=== PATIENT | female | born 1970 | race Caucasian/White ===

== ENCOUNTER → 2016-03-21 | Outpatient (CLI) | payer OTHER ==
--- NOTE | 2016-03-22 08:23 | MM ---
Reason for exam: screening (asymptomatic). Last mammogram was performed 1 year and 3 months ago. History: Family history of breast cancer in maternal grandmother at age 52. Benign ultrasound-guided core biopsy of the right breast, July 04, 2002. Core biopsy of the right breast. Took hormonal contraceptives for 16 years beginning at age 27. Physical Findings: A clinical breast exam by your physician is recommended on an annual basis and results should be correlated with mammographic findings. MG Screening Mammo w CAD Bilateral CC and MLO view(s) were taken. Prior study comparison: December 24, 2014, bilateral MG screening mammo w CAD. February 21, 2014, bilateral MG screening mammo w CAD. The breast tissue is heterogeneously dense. This may lower the sensitivity of mammography. No significant changes when compared with prior studies. ASSESSMENT: Benign, BI-RAD 2 RECOMMENDATION: Routine screening mammogram of both breasts in 1 year.
== END | disposition home or self-care (01) ==
LOC: RADMAMWWP 12:58
PROVIDERS: ATTEND Family Medicine
DX: Z12.31 Encounter for screening mammogram for malignant neoplasm of breast (principal)

== ENCOUNTER → 2016-05-23 | Outpatient (CLI) | payer OTHER ==
--- NOTE | 2016-05-23 07:45 | US ---
EXAMINATION TYPE: US transvaginal DATE OF EXAM: 05/23/2016 7:36 AM COMPARISON: Previous study dated 02/26/2016 CLINICAL HISTORY: N83.20 Previous ovarian cysts. TECHNIQUE: Date of LMP: EXAM MEASUREMENTS: Uterus: 8.6 x 4.6 x 5.4 cm Endometrial Stripe: 0.6 cm Right Ovary: 2.4 x 2.9 x 2.2 cm Left Ovary: 2.0 x 2.5 x 1.3 cm 1. Uterus: Retroverted wnl 2. Endometrium: wnl 3. Right Ovary: 1.6 x 1.2 x 1.4 cm cyst with thick rind and peripheral flow 4. Left Ovary: wnl 5. Bilateral Adnexa: wnl 6. Posterior cul-de-sac: no free fluid The patient's complex 4.6 cm right adnexal cyst now measures 1.6 cm with a thick wall and peripheral blood flow. There is free fluid adjacent to the right adnexa. IMPRESSION: EVOLVING IN APPEARANCE OF THE PATIENT'S RIGHT OVARIAN CYST.
== END | disposition home or self-care (01) ==
LOC: RADUSWWP 07:03
PROVIDERS: ATTEND Obstetrics & Gynecology
DX: N83.209 Unspecified ovarian cyst, unspecified side (principal)
CPT/HCPCS: 76830

== ENCOUNTER 2018-03-03 10:58 | Emergency (ER) | payer OTHER ==
[2018-03-03 11:07] VITALS: BP 153/97; PULSE 99; RESP 18; TEMP 98.2
[2018-03-03] MEDS ORDERED: IBUPROFEN 800 MG TAB PO STA (11:29)
--- NOTE | 2018-03-03 11:42 | ED ---
URI HPI - General Chief Complaint: Upper Respiratory Infection Stated Complaint: dizziness Time Seen by Provider: 03/03/18 11:18 Source: patient, RN notes reviewed Mode of arrival: ambulatory Limitations: no limitations - History of Present Illness Initial Comments: This a 47-year-old female who states she's had approximately 2 weeks of not feeling well with congestion or upper respiratory tract. She has had some chills and hot flashes. She states the pain is mostly in her frontal and right- sided of her facial area. Does get worse with movements and positional changes. She has had some green nasal drainage. No overt cough. Her ears are plugged up she states. No neck chest or abdominal pain no nausea vomiting diarrhea. She does states got worse over last several days. Even turning her head makes her sinus area hurts. No exposure to any flu or other major illnesses that she is aware of. No body aches no joint pain patient states she' s tried Mucinex and Coricidin without any success. No visual disturbances reported. No other modifying factors MD Complaint: cough, nasal congestion, sinus pain - Related Data Previous Rx's Medication Instructions Recorded Amoxicillin/Potassium Clav 1 tab PO Q12HR #20 tab 03/03/18 [Augmentin 875-125 Tablet] Ibuprofen 800 mg PO Q6HR PRN #20 tablet 03/03/18 predniSONE 20 mg PO BID #10 tab 03/03/18 Allergies Allergy/AdvReac Type Severity Reaction Status Date / Time codeine Allergy Nausea & Verified 03/03/18 11:06 Vomiting Review of Systems ROS Statement: Those systems with pertinent positive or pertinent negative responses have been documented in the HPI. ROS Other: All systems not noted in ROS Statement are negative. Past Medical History Past Medical History: Diabetes Mellitus Additional Past Medical History / Comment(s): Type II Diabetes History of Any Multi-Drug Resistant Organisms: None Reported Past Surgical History: Breast Surgery Additional Past Surgical History / Comment(s): lumpectomy Past Psychological History: No Psychological Hx Reported Smoking Status: Never smoker Past Alcohol Use History: Occasional Past Drug Use History: None Reported General Exam - General Exam Comments Initial Comments: This is a well-developed well-nourished awake alert oriented 3 female Limitations: no limitations General appearance: alert, in no apparent distress Head exam: Present: atraumatic, normocephalic, normal inspection Eye exam: Present: normal appearance, PERRL, EOMI. Absent: scleral icterus, conjunctival injection, periorbital swelling ENT exam: Present: normal exam, other (Dullness to both tympanic membranes no erythema seen there is tenderness to percussion over the frontal maxillary and ethmoid sinus region. This does re-create the patient's discomfort.) Neck exam: Present: normal inspection, full ROM, other (No stridor JVD or bruits ). Absent: tenderness, meningismus, lymphadenopathy Respiratory exam: Present: normal lung sounds bilaterally. Absent: respiratory distress, wheezes, rales, rhonchi, stridor Cardiovascular Exam: Present: regular rate, normal rhythm, normal heart sounds. Absent: systolic murmur, diastolic murmur, rubs, gallop, clicks Extremities exam: Present: normal inspection, full ROM, normal capillary refill. Absent: tenderness, pedal edema, joint swelling, calf tenderness Back exam: Present: normal inspection, full ROM. Absent: tenderness Neurological exam: Present: alert, oriented X3, CN II-XII intact Psychiatric exam: Present: normal affect, normal mood Skin exam: Present: warm, dry, intact, normal color. Absent: rash Course Vital Signs 03/03/18 11:01 Temperature 98.2 F Pulse Rate 99 Respiratory 18 Rate Blood Pressure 153/97 O2 Sat by Pulse 99 Oximetry Medical Decision Making - Medical Decision Making I did send no further workup was indicated. Patient is clinically manifest evidence of sinusitis. Due to the prolonged symptoms patient be placed on antibiotics in addition to a short course of steroids. I did recommend nasal saline lavage if possible. She will also get a humidifier for her house. She will start Mucinex and along with the other medication. Disposition Clinical Impression: Sinusitis Disposition: HOME SELF-CARE Condition: Good Instructions: Rhinosinusitis (ED) Additional Instructions: Basophils saline lavage (Aranza pot) Prescriptions: Amoxicillin/Potassium Clav [Augmentin 875-125 Tablet] 1 tab PO Q12HR #20 tab Ibuprofen 800 mg PO Q6HR PRN #20 tablet PRN Reason: Pain predniSONE 20 mg PO BID #10 tab Is patient prescribed a controlled substance at d/c from ED?: No Referrals: None,Stated [Primary Care Provider] - 1-2 days
== END 2018-03-03 11:48 | disposition home or self-care (01) ==
LOC: EC 10:58
DX: J32.9 Chronic sinusitis, unspecified (principal); R05 Cough; R68.83 Chills (without fever); Z88.5 Allergy status to narcotic agent
CPT/HCPCS: 99283

== ENCOUNTER → 2020-03-02 | Outpatient (CLI) | payer OTHER ==
--- NOTE | 2020-03-04 14:41 | MM ---
Reason for exam: screening (asymptomatic). Last mammogram was performed 2 years and 3 months ago. History: Family history of breast cancer in maternal grandmother at age 52. Benign ultrasound-guided core biopsy of the right breast, July 04, 2002. Core biopsy of the right breast. Took hormonal contraceptives for 16 years beginning at age 27. Physical Findings: A clinical breast exam by your physician is recommended on an annual basis and results should be correlated with mammographic findings. MG Screening Mammo w CAD Bilateral CC and MLO view(s) were taken. Prior study comparison: December 12, 2017, bilateral [facility] screening mammo. March 21, 2016, bilateral screening mammo w CAD. There are scattered fibroglandular densities. No significant changes when compared with prior studies. ASSESSMENT: Negative, BI-RAD 1 RECOMMENDATION: Routine screening mammogram of both breasts in 1 year.
== END | disposition home or self-care (01) ==
LOC: RADMAMWWP 08:23
PROVIDERS: ATTEND Obstetrics & Gynecology
DX: Z12.31 Encounter for screening mammogram for malignant neoplasm of breast (principal)
CPT/HCPCS: 77067

== ENCOUNTER 2021-04-01 15:46 | Inpatient (IN) | payer OTHER ==
[2021-04-01] MEDS ORDERED: SODIUM CHLORIDE 0.9% 1,000 ML IV STA (16:09)
[2021-04-01] MEDS ORDERED: MORPHINE SULFATE 4 MG/ML SYRINGE IV STA (16:12)
[2021-04-01] MEDS ORDERED: ONDANSETRON 4 MG/2 ML VIAL IVP STA (16:12)
--- NOTE | 2021-04-01 16:16 | ED ---
Abdominal Pain HPI - General Chief Complaint: Abdominal Pain Stated Complaint: Pelvic Pain Time Seen by Provider: 04/01/21 16:02 Source: patient, RN notes reviewed Mode of arrival: ambulatory Limitations: no limitations - History of Present Illness Initial Comments: This is a pleasant 50-year-old diabetic female presents to emergency department complaining of 3 or 4 days of lower abdominal pain. Patient states the pain is constant but waxes and wanes in intensity. It is made worse with palpation, bumps in the car, coughing, and some movements. Located now in the right lower quadrant. Patient denies any changes in bowel movements. She has had some nausea with one episode of vomiting 2 days ago. No shortness of breath or chest pain. MD Complaint: abdominal pain - Related Data Home Medications Medication Instructions Recorded Confirmed Benazepril HCl 20 mg PO DAILY 04/01/21 04/01/21 Dulaglutide [Trulicity] 0.75 mg SQ TH 04/01/21 04/01/21 Ergocalciferol [Vitamin D2 (1250 1,250 mcg PO Q30D 04/01/21 04/01/21 Mcg = 26782 Iu)] Insulin Glargine,Hum.rec.anlog 60 unit SQ DAILY 04/01/21 04/01/21 [Lantus Solostar Pen] Pravastatin Sodium [Pravachol] 20 mg PO DAILY 04/01/21 04/01/21 sitaGLIPtin [Januvia] 100 mg PO DAILY 04/01/21 04/01/21 Allergies Allergy/AdvReac Type Severity Reaction Status Date / Time codeine Allergy Nausea & Verified 04/01/21 16:56 Vomiting Review of Systems ROS Statement: Those systems with pertinent positive or pertinent negative responses have been documented in the HPI. ROS Other: All systems not noted in ROS Statement are negative. Past Medical History Past Medical History: Diabetes Mellitus Additional Past Medical History / Comment(s): Type II Diabetes History of Any Multi-Drug Resistant Organisms: None Reported Past Surgical History: Breast Surgery Additional Past Surgical History / Comment(s): lumpectomy Past Psychological History: No Psychological Hx Reported Smoking Status: Never smoker Past Alcohol Use History: Occasional Past Drug Use History: None Reported General Exam - General Exam Comments Initial Comments: Vital signs reviewed, does not appear to be in any significant distress. Noted to be febrile. Capillary refill less than 2 seconds. Limitations: no limitations General appearance: alert, in no apparent distress Head exam: Present: atraumatic, normocephalic, normal inspection Eye exam: Present: normal appearance, PERRL, EOMI. Absent: scleral icterus, conjunctival injection, periorbital swelling ENT exam: Present: normal exam, mucous membranes moist Neck exam: Present: normal inspection. Absent: tenderness, meningismus, lymphadenopathy Respiratory exam: Present: normal lung sounds bilaterally. Absent: respiratory distress, wheezes, rales, rhonchi, stridor Cardiovascular Exam: Present: regular rate, normal rhythm, normal heart sounds. Absent: systolic murmur, diastolic murmur, rubs, gallop, clicks GI/Abdominal exam: Present: soft, tenderness, guarding, rebound, normal bowel sounds. Absent: distended, rigid External exam: Present: normal external exam, other (Chaperoned by female emergency department health record technician). Absent: erythema, swelling Speculum exam: Present: vaginal discharge, cervical discharge, other (Purulent cervical discharge noted). Absent: vaginal bleeding, foreign body, tissue, laceration By manual exam: Present: cervical motion tenderness, adnexal tenderness, uterine tenderness, other (Right adnexal tenderness). Absent: adnexal mass, uterine en largement Extremities exam: Present: normal inspection, full ROM, normal capillary refill. Absent: tenderness, pedal edema, joint swelling, calf tenderness Back exam: Present: normal inspection Neurological exam: Present: alert, oriented X3, CN II-XII intact Psychiatric exam: Present: normal affect, normal mood Skin exam: Present: warm, dry, intact, normal color. Absent: rash Course Vital Signs 04/01/21 15:48 Temperature 100.0 F H Pulse Rate 117 H Respiratory 20 Rate Blood Pressure 106/65 O2 Sat by Pulse 100 Oximetry - Reevaluation(s) Reevaluation #1: 04/01/21 18:09 Medical record is reviewed Symptoms are improved pain ortiz, pelvic examination ordered. We will order gynecological STD testing. Ceftriaxone, doxycycline, and metronidazole ordered. Patient is informed of results and questions answered Patient in no distress Medical Decision Making - Medical Decision Making Diabetic female presents with 3-4 days of abdominal pain which is worsening and now relegated to the right lower quadrant. Appendicitis is within the differential. Also diverticulitis or possible early small bowel obstruction. Perforated bowel less likely. I think this is less likely gynecological or urogenital this patient has no vaginal discharge, no hematuria, patient denies any chance of . Presentation not consistent with cardiopulmonary disease. Will perform pelvic examination. Computed tomography scan shows evidence of hyperemic fallopian tube in the right adnexa. Clinical correlation advised for possible PID with hydro-salpinx. Note that the patient does admit to some mild vaginal discharge which may be increased from physiologic. This been going on for several days. Patient sexually active but only with her significant other. Adamantly denies any chance of STD. - Lab Data Result diagrams: 04/01/21 Unknown 04/01/21 16:30 Lab Results 04/01/21 04/01/21 04/01/21 Range/Units 16:30 16:30 16:38 WBC (3.8-10.6) k/uL RBC (3.80-5.40) m/uL Hgb (11.4-16.0) gm/dL Hct (34.0-46.0) % MCV (80.0-100.0) fL MCH (25.0-35.0) pg MCHC (31.0-37.0) g/dL RDW (11.5-15.5) % Plt Count (150-450) k/uL MPV Neutrophils % % Lymphocytes % % Monocytes % % Eosinophils % % Basophils % % Neutrophils # (1.3-7.7) k/uL Lymphocytes # (1.0-4.8) k/uL Monocytes # (0-1.0) k/uL Eosinophils # (0-0.7) k/uL Basophils # (0-0.2) k/uL Sodium 132 L (137-145) mmol/L Potassium 3.9 (3.5-5.1) mmol/L Chloride 97 L (98-107) mmol/L Carbon Dioxide 26 (22-30) mmol/L Anion Gap 9 mmol/L BUN 12 (7-17) mg/dL Creatinine 0.63 (0.52-1.04) mg/dL Est GFR (CKD-EPI)AfAm >90 (>60 ml/min/1.73 sqM) Est GFR (CKD-EPI)NonAf >90 (>60 ml/min/1.73 sqM) Glucose 218 H (74-99) mg/dL Plasma Lactic Acid Bruce 1.2 (0.7-2.0) mmol/L Calcium 9.0 (8.4-10.2) mg/dL Total Bilirubin 0.8 (0.2-1.3) mg/dL AST 18 (14-36) U/L ALT 16 (4-34) U/L Alkaline Phosphatase 63 (38-126) U/L Total Protein 7.2 (6.3-8.2) g/dL Albumin 4.0 (3.5-5.0) g/dL Lipase 52 (23-300) U/L Urine Color Urine Appearance (Clear) Urine pH (5.0-8.0) Ur Specific Mcgregor (1.001-1.035) Urine Protein (Negative) Urine Glucose (UA) (Negative) Urine Ketones (Negative) Urine Blood (Negative) Urine Nitrite (Negative) Urine Bilirubin (Negative) Urine Urobilinogen (<2.0) mg/dL Ur Leukocyte Esterase (Negative) Urine RBC (0-5) /hpf Urine WBC (0-5) /hpf Ur Squamous Epith Cells (0-4) /hpf Urine HCG, Qual Not Detected (Not Detectd) 04/01/21 04/01/21 Range/Units 17:56 Unknown WBC 15.7 H (3.8-10.6) k/uL RBC 4.19 (3.80-5.40) m/uL Hgb 13.2 (11.4-16.0) gm/dL Hct 39.0 (34.0-46.0) % MCV 93.3 (80.0-100.0) fL MCH 31.6 (25.0-35.0) pg MCHC 33.9 (31.0-37.0) g/dL RDW 12.8 (11.5-15.5) % Plt Count 243 (150-450) k/uL MPV 8.7 Neutrophils % 87 % Lymphocytes % 6 % Monocytes % 4 % Eosinophils % 1 % Basophils % 0 % Neutrophils # 13.6 H (1.3-7.7) k/uL Lymphocytes # 1.0 (1.0-4.8) k/uL Monocytes # 0.7 (0-1.0) k/uL Eosinophils # 0.2 (0-0.7) k/uL Basophils # 0.0 (0-0.2) k/uL Sodium (137-145) mmol/L Potassium (3.5-5.1) mmol/L Chloride (98-107) mmol/L Carbon Dioxide (22-30) mmol/L Anion Gap mmol/L BUN (7-17) mg/dL Creatinine (0.52-1.04) mg/dL Est GFR (CKD-EPI)AfAm (>60 ml/min/1.73 sqM) Est GFR (CKD-EPI)NonAf (>60 ml/min/1.73 sqM) Glucose (74-99) mg/dL Plasma Lactic Acid Bruce (0.7-2.0) mmol/L Calcium (8.4-10.2) mg/dL Total Bilirubin (0.2-1.3) mg/dL AST (14-36) U/L ALT (4-34) U/L Alkaline Phosphatase (38-126) U/L Total Protein (6.3-8.2) g/dL Albumin (3.5-5.0) g/dL Lipase (23-300) U/L Urine Color Yellow Urine Appearance Clear (Clear) Urine pH 6.5 (5.0-8.0) Ur Specific Mcgregor >1.050 H (1.001-1.035) Urine Protein Trace H (Negative) Urine Glucose (UA) 4+ H (Negative) Urine Ketones 1+ H (Negative) Urine Blood Moderate H (Negative) Urine Nitrite Negative (Negative) Urine Bilirubin Negative (Negative) Urine Urobilinogen 2.0 (<2.0) mg/dL Ur Leukocyte Esterase Negative (Negative) Urine RBC 4 (0-5) /hpf Urine WBC 1 (0-5) /hpf Ur Squamous Epith Cells 3 (0-4) /hpf Urine HCG, Qual (Not Detectd) - Radiology Data Radiology results: report reviewed, image reviewed Critical Care Time Critical Care Time: Yes (31) Total Critical Care Time: 31 Critical Care Time: Sepsis, multiple consultations, reevaluation of the patient's condition, evaluation of diagnostic workup. Disposition Clinical Impression: Sepsis, Pelvic inflammatory disease, Vaginal discharge Referrals: Tong Slaughter MD [Primary Care Provider] - 1-2 days
[2021-04-01 16:56] LABS: ALT 16 U/L (4-34); AST 18 U/L (14-36); African American GFR (CKD) >90 (>60 ml/min/1.73 sqM); Alkaline Phosphatase 63 U/L (38-126); Anion Gap 9 mmol/L; Blood Urea Nitrogen 12 mg/dL (7-17); Carbon Dioxide 26 mmol/L (22-30); Chloride 97 mmol/L (98-107); Glucose 218 mg/dL (74-99); Lipase 52 U/L (23-300); Non-African American GFR(CKD) >90 (>60 ml/min/1.73 sqM); Potassium 3.9 mmol/L (3.5-5.1); Sodium 132 mmol/L (137-145); Total Bilirubin 0.8 mg/dL (0.2-1.3); Total Protein 7.2 g/dL (6.3-8.2)
[2021-04-01 16:56] LABS: Basophils % (A) 0 %; Eosinophils # (A) 0.2 k/uL (0-0.7); Eosinophils % (A) 1 %; HGB 13.2 gm/dL (11.4-16.0); Lymphocytes % (A) 6 %; MCH 31.6 pg (25.0-35.0); MCHC 33.9 g/dL (31.0-37.0); MCV 93.3 fL (80.0-100.0); Mean Platelet Volume 8.7; Monocytes # (A) 0.7 k/uL (0-1.0); Monocytes % (A) 4 %; Neutrophils # (A) 13.6 k/uL (1.3-7.7); Neutrophils % (A) 87 %; Platelet Count 243 k/uL (150-450); RBC 4.19 m/uL (3.80-5.40); RDW 12.8 % (11.5-15.5); WBC 15.7 k/uL (3.8-10.6)
[2021-04-01] MEDS ORDERED: LACTATED RINGERS 1,000 ML IV ONE (17:30)
--- NOTE | 2021-04-01 17:52 | CT ---
EXAMINATION TYPE: CT abdomen pelvis w con CT DLP: 921.1 mGycm, Automated exposure control for dose reduction was used. DATE OF EXAM: 04/01/2021 5:33 PM COMPARISON: None. CLINICAL INDICATION:Female, 50 years old with history of R Lower quadrant abdominal pain; Right lower quadrant pain. Nausea and fever. TECHNIQUE: Standard CT of the abdomen and pelvis following the administration of 100 cc of Isovue 3 00 IV contrast material. Coronal and sagittal reformats were performed. FINDINGS: LOWER CHEST: Unremarkable ABDOMEN LIVER: Unremarkable GALLBLADDER AND BILE DUCTS: Unremarkable. PANCREAS: Unremarkable. SPLEEN: Unremarkable. ADRENAL GLANDS: Unremarkable. KIDNEYS AND URETERS: No evidence of hydronephrosis or renal calculus. The ureters are unremarkable. PELVIS BLADDER: Unremarkable REPRODUCTIVE: There is a tubular structure in the right adnexa which is dilated and demonstrates hype remia mendieta measures 27 mm in diameter. There is fat stranding changes within the right adnexa. ABDOMEN & PELVIS STOMACH AND BOWEL: The appendix is visualized and demonstrates feces/air within the lumen. No evidenc e of bowel obstruction. PERITONEUM: No evidence of pneumoperitoneum or free fluid. VASCULATURE: No evidence of aortic aneurysm. MUSCULOSKELETAL: No acute osseous abnormalities LYMPH NODES: No gross evidence for lymphadenopathy. SOFT TISSUE/ABDOMINAL WALL: Unremarkable IMPRESSION: Tubular structure within the right adnexa which is hyperemic and dilated. This is favored to represen t the fallopian tube. Correlate for pyosalpinx/hydrosalpinx in the setting of pelvic inflammatory dis ease.
[2021-04-01] MEDS ORDERED: cefTRIAXone IN SWFI 1,000 MG/10 ML SYRINGE IVP STA (18:06)
[2021-04-01] MEDS ORDERED: metroNIDAZOLE-NS PMX 500 MG in SALINE 1 100ML.BAG IVPB STA (18:06)
[2021-04-01 18:19] LABS: Appearance,Urine Clear (Clear); Bilirubin,Urine Negative (Negative); Blood,Urine Moderate (Negative); Color,Urine Yellow; Glucose,Urine (UA) 4+ (Negative); Ketones,Urine 1+ (Negative); Leukocyte Esterase,Urine Negative (Negative); Nitrite,Urine Negative (Negative); PH, Urine 6.5 (5.0-8.0); Protein,Urine Trace (Negative); RBC,Urine 4 /hpf (0-5); Squamous Epithelial Cell,Urine 3 /hpf (0-4); WBC,Urine 1 /hpf (0-5)
[2021-04-01 18:20] LABS: Specific Gravity,Urine >1.050 (1.001-1.035)
[2021-04-01] MEDS ORDERED: DOXYCYCLINE 100 MG in SODIUM CHLORIDE 0.9% 100 ML IVPB ONE (18:30)
[2021-04-01] MEDS ORDERED: NALOXONE 0.4 MG/ML 1 ML VIAL IV PRN (19:02)
[2021-04-01] MEDS ORDERED: MELATONIN 3 MG TABLET PO PRN (19:02)
[2021-04-01] MEDS ORDERED: ONDANSETRON 4 MG/2 ML VIAL IVP PRN (19:02)
[2021-04-01] MEDS: SODIUM CHLORIDE 0.9% 1,000 ML IV SCH ×2 (20:07→23:29)
[2021-04-01 21:47] LABS: Glucose,Whole Blood 143 mg/dL (75-99)
[2021-04-01] MEDS: metroNIDAZOLE-NS PMX 500 MG in SALINE 1 100ML.BAG IVPB SCH (23:26)
[2021-04-01] MEDS: MORPHINE SULFATE 4 MG/ML SYRINGE IV PRN (23:27)
--- NOTE | 2021-04-02 00:12 | US ---
EXAMINATION TYPE: US transvaginal DATE OF EXAM: 04/01/2021 COMPARISON: CT, US CLINICAL HISTORY: Right pelvic pain. Right-sided pelvic pain. Hx ovarian cyst. . TECHNIQUE: Transvaginal (TV). Date of LMP: 03/14/2021 EXAM MEASUREMENTS: Uterus: 8.4 x 5.4 x 5.2 cm Endometrial Stripe: 0.41 cm Possible right ovarian tissue versus other, in right adnexa measures: 2.9 x 2.3 x 2.4 cm. Left Ovary: 3.5 x 2.5 x 2.8 cm 1. Uterus: Retroverted Appears heterogeneous. Anechoic area seen in cervix: 0.5 x 0.5 x 0.5 cm. 2. Endometrium: Measures 0.41 cm. 3. Right Ovary: Possible ovarian tissue measured toward end of the exam. 4. Left Ovary: Anechoic area seen: 2.6 x 2.0 x 1.9 cm. Spectral, color and waveform doppler imaging shows arterial and venous flow within the left ovary. Right ovary not definitely seen, but arterial and venous doppler flow within area in right adnexa not ed. 5. Bilateral Adnexa: Complex, elongating tubular structure with vascularity seen within the right a dnexa measuring 8.3 x 4.0 x 3.4 cm. Echoes noted within tubular structure. Possible ovarian tissue noted just adjacent to this complex area measured. Prominent blood vessels noted in left adnexa. 6. Posterior cul-de-sac: Yes, fluid seen. IMPRESSION: Simple 2 cm cyst on the left ovary. No solid adnexal mass. Tubular structure in the right adnexa coul d be hydrosalpinx. There is small amount of free fluid in the cul-de-sac. No evidence of uterine mass .
[2021-04-02 02:22] LABS: Glucose,Whole Blood 95 mg/dL (75-99)
[2021-04-02 07:13] LABS: Glucose,Whole Blood 77 mg/dL (75-99)
[2021-04-02 07:33] LABS: Glucose,Whole Blood 93 mg/dL (75-99)
[2021-04-02] MEDS: MORPHINE SULFATE 4 MG/ML SYRINGE IV PRN (07:34)
[2021-04-02] MEDS: metroNIDAZOLE-NS PMX 500 MG in SALINE 1 100ML.BAG IVPB SCH ×3 (07:35→23:35)
[2021-04-02 09:28] LABS: HCT 34.4 % (37.2-46.3); HGB 11.1 g/dL (12.0-15.0); MCH 30.2 pg (27.0-32.0); MCHC 32.3 g/dL (32.0-37.0); MCV 93.5 fL (80.0-97.0); Mean Platelet Volume 11.6 fL (9.5-12.2); NRBC Per 100 WBC 0 /100 WBCS (0.0-0.0); Platelet Count 250 X 10*3/uL (140-440); RBC 3.68 X 10*6/uL (4.10-5.20); RDW 12.5 % (11.5-14.5); WBC 16.25 X 10*3/uL (4.50-10.00)
[2021-04-02] MEDS: DOXYCYCLINE 100 MG in SODIUM CHLORIDE 0.9% 100 ML IVPB SCH ×2 (09:28→20:56)
[2021-04-02 10:25] LABS: Basophils # (A) 0.05 X 10*3/uL (0.00-0.10); Basophils % (A) 0.3 %; Eosinophils # (A) 0.03 X 10*3/uL (0.04-0.35); Eosinophils % (A) 0.2 %; Immature Grans, Automated 0.6 %; Lymphocytes # (A) 1.51 X 10*3/uL (0.90-5.00); Lymphocytes % (A) 9.3 %; Monocytes # (A) 1.55 X 10*3/uL (0.20-1.00); Monocytes % (A) 9.5 %; Neutrophils # (A) 13.02 X 10*3/uL (1.80-7.70); Neutrophils % (A) 80.1 %
--- NOTE | 2021-04-02 10:31 | P.HPOB ---
History of Present Illness H&P Date: 04/02/21 Chief Complaint: Acute abdominal pain This is a 50-year-old female 3 para 2, well known to me, who presented with right lower quadrant abdominal pain that began Monday evening. She states it was in the right lower quadrant and she felt crampy kind of like labor pains. She also had chills that night and decreased appetite. She did complain of some nausea but no vomiting until this morning. She states she ate some eggs this morning and she just vomited them up right before I came in the room. She has noticed a little bit of a watery vaginal discharge since yesterday that increased after her pelvic exam in the ER. She is not currently sexually active with her since he has some medical conditions. She has not been sexually active in over a year. She does complain of constipation that has been going on for some time. She states she has a bowel movement 1-2 times a week. Her last bowel movement was probably about a week ago. She states she feels some gassy rumblings in her lower abdomen and feels like something is trying to push through but she still has not been able to pass any bowel movement. She does have a history of tubo-ovarian abscess and PID 20 years ago. She did have a laparoscopy with Dr. Yao in approximately May 2001 for drainage of tubo- ovarian abscesses. At that time he did do cultures and they cultured out E. coli. At that time, her STD cultures were all negative but both her and her were treated prophylactically for STDs. At that time also she denied any history of STDs or infidelity. She has had scans with ultrasound and/or CAT scans since that time and they do chronically show a hydrosalpinx on the right fallopian tube. Computed tomography scan in the emergency room last night showed appendix visualized and it demonstrated feces/air within the lumen, with no evidence of bowel obstruction. There was no evidence of pneumoperitoneum or free fluid. There was a tubular structure in the right adnexa that was dilated and demonstrated hyperemia mendieta and measured 27 mm in diameter. There was fat stranding within the right adnexa. No lymphadenopathy is noted. Pelvic ultrasound was performed that showed uterus normal size with normal endometrial stripe. There was a possible ovarian tissue in the right adnexa measuring 2.9 cm. There is a complex elongated tubular structure in the right adnexa measuring 8.3 x 4 x 3.4 cm that could be a hydrosalpinx. There was also a small 2 cm simple cyst on the left ovary. She also had a mildly elevated temperature at 100 and a white count of 15,000 in the ER. The ER doctor felt that she did have some cervical motion tenderness and therefore she was admitted for have a viable PID and started on triple antibiotics. OB history: . History of 2 vaginal deliveries and 1 miscarriage. Gynecologic history: No history of any sexual transmitted diseases. History of PID/TOA 20 years ago. Menses are regular monthly. Her last menstrual period was 03/14/2021 and lasted 5 days. Social history: She is . She is self-employed and owns a hair salon. Review of Systems Constitutional: Reports chills Eyes: denies blurred vision, denies pain Ears, nose, mouth and throat: Denies headache, Denies sore throat Cardiovascular: Denies chest pain, Denies shortness of breath Respiratory: Denies cough Gastrointestinal: Reports abdominal pain, Reports change in bowel habits, Reports constipation, Reports loss of appetite, Reports nausea, Reports vomiting Genitourinary: Reports pelvic pain, Denies abnormal vaginal bleeding, Denies Menstruation: Reports menses 1-7 days, Reports period normal Musculoskeletal: Reports low back pain, Reports muscle cramps, Reports myalgias Integumentary: Denies pruritus, Denies rash Neurological: Reports numbness Psychiatric: Denies anxiety, Denies depression Past Medical History Past Medical History: Diabetes Mellitus, Hyperlipidemia, Hypertension Additional Past Medical History / Comment(s): Type II Diabetes; neuropathy History of Any Multi-Drug Resistant Organisms: None Reported Past Surgical History: Breast Surgery (Right breast lumpectomy-benign) Additional Past Surgical History / Comment(s): LEEP procedure-July,; lapa roscopy for drainage of tubo-ovarian abscess-May 2001 Past Anesthesia/Blood Transfusion Reactions: No Reported Reaction Past Psychological History: No Psychological Hx Reported Smoking Status: Never smoker Past Alcohol Use History: Occasional Past Drug Use History: None Reported - Past Family History Mother Family Medical History: No Reported History Medications and Allergies Home Medications Medication Instructions Recorded Confirmed Type Benazepril HCl 20 mg PO DAILY 04/01/21 04/01/21 History Dulaglutide [Trulicity] 0.75 mg SQ TH 04/01/21 04/01/21 History Ergocalciferol [Vitamin D2 (1250 1,250 mcg PO Q30D 04/01/21 04/01/21 History Mcg = 69055 Iu)] Insulin Glargine,Hum.rec.anlog 60 unit SQ DAILY 04/01/21 04/01/21 History [Lantus Solostar Pen] Pravastatin Sodium [Pravachol] 20 mg PO DAILY 04/01/21 04/01/21 History sitaGLIPtin [Januvia] 100 mg PO DAILY 04/01/21 04/01/21 History Allergies Allergy/AdvReac Type Severity Reaction Status Date / Time codeine Allergy Nausea & Verified 04/01/21 16:56 Vomiting Exam Osteopathic Statement: *. No significant issues noted on an osteopathic structural exam other than those noted in the History and Physical/Consult. Vital Signs Temp Pulse Pulse Resp BP BP Pulse Ox 04/02/21 04:15 99.5 F 87 16 101/62 94 L 04/01/21 21:08 98.5 F 88 16 109/69 99 04/01/21 20:05 77 16 123/66 98 04/01/21 15:48 100.0 F H 117 H 20 106/65 100 Intake and Output 04/01/21 04/02/21 04/02/21 22:59 06:59 14:59 Intake Total 1040 Balance 1040 Intake: Intake, IV Titration 1040 Amount Doxycycline 100 mg In 940 Sodium Chloride 0.9% 100 ml @ 100 mls/hr IVPB Q12HR [facility] Rx#:[id number] metroNIDAZOLE-NS PMX 500 100 mg In Saline 1 100ml.bag @ 100 mls/hr IVPB Q8HR [facility] Rx#:[id number] Other: Voiding Method Toilet Toilet Weight 83 kg Gen.: Well-developed well-nourished female in mild distress due to pain HEENT: Within normal limits Heart: Regular rate and rhythm Lungs: Clear to auscultation bilaterally Abdomen: Slightly firm in her upper abdomen. Lower abdomen is soft however tender in the right lower quadrant. No guarding or rebound is noted. Pelvic exam: Very minimal cervical motion tenderness is noted. Uterus is retroverted and not enlarged. Minimal uterine tenderness is noted. There is some tenderness in the right adnexa however no specific masses are palpated but I'm unable to push very hard. No tenderness in the left adnexa is noted. When I do move her cervix, she does complain of pain in the right lower quadrant. No discharge is noted on the glove. Extremities: Negative Homans Results Result Diagrams: 04/02/21 06:36 04/01/21 16:30 Abnormal Lab Results - Last 24 Hours (Table) 04/01/21 04/01/21 04/01/21 Range/Units 16:30 17:56 21:47 WBC (3.8-10.6) k/uL RBC (4.10-5.20) X 10*6/uL Hgb (12.0-15.0) g/dL Hct (37.2-46.3) % Neutrophils # (1.3-7.7) k/uL Sodium 132 L (137-145) mmol/L Chloride 97 L (98-107) mmol/L Glucose 218 H (74-99) mg/dL POC Glucose (mg/dL) 143 H (75-99) mg/dL Ur Specific [place] >1.050 H (1.001-1.035) Urine Protein Trace H (Negative) Urine Glucose (UA) 4+ H (Negative) Urine Ketones 1+ H (Negative) Urine Blood Moderate H (Negative) 04/01/21 04/02/21 Range/Units Unknown 06:36 WBC 15.7 H 16.25 H (3.8-10.6) k/uL RBC 3.68 L (4.10-5.20) X 10*6/uL Hgb 11.1 L (12.0-15.0) g/dL Hct 34.4 L (37.2-46.3) % Neutrophils # 13.6 H (1.3-7.7) k/uL Sodium (137-145) mmol/L Chloride (98-107) mmol/L Glucose (74-99) mg/dL POC Glucose (mg/dL) (75-99) mg/dL Ur Specific [place] (1.001-1.035) Urine Protein (Negative) Urine Glucose (UA) (Negative) Urine Ketones (Negative) Urine Blood (Negative) Microbiology - Last 24 Hours (Table) 04/01/21 18:36 Genital Culture - Preliminary Vaginal CT scan - abdomen: report reviewed CT scan - pelvis: report reviewed Assessment and Plan (1) Abdominal pain Current Visit: Yes Status: Acute Code(s): R10.9 - UNSPECIFIED ABDOMINAL PAIN SNOMED Code(s): 22267213 (2) Pelvic inflammatory disease Current Visit: Yes Status: Acute Code(s): N73.9 - FEMALE PELVIC INFLAMMATORY DISEASE, UNSPECIFIED SNOMED Code(s): 836961642 (3) Sepsis Current Visit: Yes Status: Acute Code(s): A41.9 - SEPSIS, UNSPECIFIED ORGANISM SNOMED Code(s): 08298538 Plan: Admission for antibiotics for possible PID. I am still concerned that there may be something more then PID going on since the patient is not sexually active and has had no history of any sexually transmitted diseases. I'm concerned that there may be either diverticulitis or appendicitis going on that may be inflaming the right adnexa and since she has a chronic hydrosalpinx, this is showing up as a possible tubo-ovarian abscess on ultrasound. I would like to involve general surgery to get their opinion on this. In the meantime will continue with IV antibiotics with Rocephin, Flagyl, and doxycycline. If no improvement in symptoms after 24-48 hours of antibiotics, surgery may be necessary. Dr. Mehta will be covering the remainder of today and the weekend.
[2021-04-02 11:47] LABS: Glucose,Whole Blood 182 mg/dL (75-99)
[2021-04-02 13:27] LABS: C. trachomatis,PCR Negative (Neg,Equiv); Chlamydia trachomatis Source Vagina; N. gonorrhoeae,PCR Negative (Neg,Equiv); Neisseria Source Vagina
--- NOTE | 2021-04-02 14:31 | P.GSCN ---
History of Present Illness Consult date: 04/02/21 Reason for Consult: Abdominal pain History of present illness: 50-year-old female presents to the hospital with right lower abdominal pain that began 2-3 days ago. Patient describes pain as being crampy. She had some chills present and some nausea. Does describe some constipation. Came to the hospital for closer evaluation. Was found have a slightly elevated white blood cell count. CAT scan was performed showing tubular structure in the right adnexa with a slightly thickened wall suspicious for tubo-ovarian abscess. Patient apparently has a history of this 20 years ago. Cultures at that time showed E. coli. Patient is not sexually active. Patient says that yesterday she did develop some spontaneous foul-smelling drainage vaginally. She was started on antibiotics. We were consulted to evaluate for possible enteric source of tubo-ovarian abscess. Patient's CAT scan was reviewed. Films were also reviewed with Dr. Venegas. Patient's appendix is quite a distance away from the right lower quadrant process. The sigmoid colon likewise does not appear to be contributing to this process. Review of Systems The patient denies any acute changes in vision or hearing, no dysphagia or odynophagia, no chest pain or shortness of breath, no dysuria or hematuria, no headache, no runny nose, no rectal bleeding or melena, no unexplained weight loss Past Medical History Past Medical History: Diabetes Mellitus, Hyperlipidemia, Hypertension Additional Past Medical History / Comment(s): Type II Diabetes; neuropathy History of Any Multi-Drug Resistant Organisms: None Reported Past Surgical History: Breast Surgery (Right breast lumpectomy-benign) Additional Past Surgical History / Comment(s): LEEP procedure-July,; laparoscopy for drainage of tubo-ovarian abscess-May 2001 Past Anesthesia/Blood Transfusion Reactions: No Reported Reaction Past Psychological History: No Psychological Hx Reported Smoking Status: Never smoker Past Alcohol Use History: Occasional Past Drug Use History: None Reported - Past Family History Mother Family Medical History: No Reported History Medications and Allergies Home Medications Medication Instructions Recorded Confirmed Type Benazepril HCl 20 mg PO DAILY 04/01/21 04/01/21 History Dulaglutide [Trulicity] 0.75 mg SQ TH 04/01/21 04/01/21 History Ergocalciferol [Vitamin D2 (1250 1,250 mcg PO Q30D 04/01/21 04/01/21 History Mcg = 39162 Iu)] Insulin Glargine,Hum.rec.anlog 60 unit SQ DAILY 04/01/21 04/01/21 History [Lantus Solostar Pen] Pravastatin Sodium [Pravachol] 20 mg PO DAILY 04/01/21 04/01/21 History sitaGLIPtin [Januvia] 100 mg PO DAILY 04/01/21 04/01/21 History Allergies Allergy/AdvReac Type Severity Reaction Status Date / Time codeine Allergy Nausea & Verified 04/01/21 16:56 Vomiting Surgical - Exam Vital Signs Temp Pulse Resp BP Pulse Ox 100.0 F H 117 H 20 106/65 100 04/01/21 15:48 04/01/21 15:48 04/01/21 15:48 04/01/21 15:48 04/01/21 15:48 Physical exam: General: Well-developed, well-nourished HEENT: Normocephalic, sclerae nonicteric Abdomen: Right lower quadrant tenderness, nondistended Extremities: No edema Neuro: Alert and oriented Results - Labs 04/02/21 06:36 04/01/21 16:30 Abnormal Lab Results - Last 24 Hours (Table) 04/01/21 04/01/21 04/01/21 Range/Units 16:30 17:56 21:47 WBC (3.8-10.6) k/uL RBC (4.10-5.20) X 10*6/uL Hgb (12.0-15.0) g/dL Hct (37.2-46.3) % Immature Gran # (0.00-0.04) X 10*3/uL Neutrophils # (1.3-7.7) k/uL Monocytes # (0.20-1.00) X 10*3/uL Eosinophils # (0.04-0.35) X 10*3/uL Sodium 132 L (137-145) mmol/L Chloride 97 L (98-107) mmol/L Glucose 218 H (74-99) mg/dL POC Glucose (mg/dL) 143 H (75-99) mg/dL Ur Specific [place] >1.050 H (1.001-1.035) Urine Protein Trace H (Negative) Urine Glucose (UA) 4+ H (Negative) Urine Ketones 1+ H (Negative) Urine Blood Moderate H (Negative) 04/01/21 04/02/21 04/02/21 Range/Units Unknown 06:36 11:45 WBC 15.7 H 16.25 H (3.8-10.6) k/uL RBC 3.68 L (4.10-5.20) X 10*6/uL Hgb 11.1 L (12.0-15.0) g/dL Hct 34.4 L (37.2-46.3) % Immature Gran # 0.09 H (0.00-0.04) X 10*3/uL Neutrophils # 13.6 H 13.02 H (1.3-7.7) k/uL Monocytes # 1.55 H (0.20-1.00) X 10*3/uL Eosinophils # 0.03 L (0.04-0.35) X 10*3/uL Sodium (137-145) mmol/L Chloride (98-107) mmol/L Glucose (74-99) mg/dL POC Glucose (mg/dL) 182 H (75-99) mg/dL Ur Specific [place] (1.001-1.035) Urine Protein (Negative) Urine Glucose (UA) (Negative) Urine Ketones (Negative) Urine Blood (Negative) Microbiology - Last 24 Hours (Table) 04/01/21 18:36 Genital Culture - Preliminary Vaginal Diabetes panel 04/01/21 Range/Units 16:30 Sodium 132 L (137-145) mmol/L Potassium 3.9 (3.5-5.1) mmol/L Chloride 97 L (98-107) mmol/L Carbon Dioxide 26 (22-30) mmol/L BUN 12 (7-17) mg/dL Creatinine 0.63 (0.52-1.04) mg/dL Glucose 218 H (74-99) mg/dL Calcium 9.0 (8.4-10.2) mg/dL AST 18 (14-36) U/L ALT 16 (4-34) U/L Alkaline Phosphatase 63 (38-126) U/L Total Protein 7.2 (6.3-8.2) g/dL Albumin 4.0 (3.5-5.0) g/dL Calcium panel 04/01/21 Range/Units 16:30 Calcium 9.0 (8.4-10.2) mg/dL Albumin 4.0 (3.5-5.0) g/dL Pituitary panel 04/01/21 Range/Units 16:30 Sodium 132 L (137-145) mmol/L Potassium 3.9 (3.5-5.1) mmol/L Chloride 97 L (98-107) mmol/L Carbon Dioxide 26 (22-30) mmol/L BUN 12 (7-17) mg/dL Creatinine 0.63 (0.52-1.04) mg/dL Glucose 218 H (74-99) mg/dL Calcium 9.0 (8.4-10.2) mg/dL Adrenal panel 04/01/21 Range/Units 16:30 Sodium 132 L (137-145) mmol/L Potassium 3.9 (3.5-5.1) mmol/L Chloride 97 L (98-107) mmol/L Carbon Dioxide 26 (22-30) mmol/L BUN 12 (7-17) mg/dL Creatinine 0.63 (0.52-1.04) mg/dL Glucose 218 H (74-99) mg/dL Calcium 9.0 (8.4-10.2) mg/dL Total Bilirubin 0.8 (0.2-1.3) mg/dL AST 18 (14-36) U/L ALT 16 (4-34) U/L Alkaline Phosphatase 63 (38-126) U/L Total Protein 7.2 (6.3-8.2) g/dL Albumin 4.0 (3.5-5.0) g/dL Assessment and Plan (1) Abdominal pain Narrative/Plan: 50-year-old female with right lower abdominal pain. CAT scan and ultrasound suggesting tubo-ovarian abscess. No enteric source seen on CAT scan. Continue antibiotics and management per gynecology. We'll follow with you. Current Visit: Yes Status: Acute Code(s): R10.9 - UNSPECIFIED ABDOMINAL PAIN SNOMED Code(s): 67551236
[2021-04-02] MEDS: SODIUM CHLORIDE 0.9% 1,000 ML IV SCH ×2 (15:58→18:02)
[2021-04-02 17:19] LABS: Glucose,Whole Blood 167 mg/dL (75-99)
[2021-04-02 20:18] LABS: Glucose,Whole Blood 225 mg/dL (75-99)
[2021-04-03 02:10] LABS: Glucose,Whole Blood 180 mg/dL (75-99)
[2021-04-03] MEDS: SODIUM CHLORIDE 0.9% 1,000 ML IV SCH ×2 (03:02→10:08)
[2021-04-03 07:20] LABS: Basophils % (A) 0 %; Eosinophils # (A) 0.2 k/uL (0-0.7); Eosinophils % (A) 1 %; HCT 38.5 % (34.0-46.0); HGB 12.1 gm/dL (11.4-16.0); Lymphocytes # (A) 1.2 k/uL (1.0-4.8); Lymphocytes % (A) 8 %; MCH 29.9 pg (25.0-35.0); MCHC 31.4 g/dL (31.0-37.0); MCV 95.3 fL (80.0-100.0); Mean Platelet Volume 9.5; Monocytes # (A) 0.8 k/uL (0-1.0); Monocytes % (A) 6 %; Neutrophils # (A) 12.5 k/uL (1.3-7.7); Neutrophils % (A) 84 %; Platelet Count 231 k/uL (150-450); RBC 4.04 m/uL (3.80-5.40); RDW 12.2 % (11.5-15.5); WBC 14.8 k/uL (3.8-10.6)
[2021-04-03 07:26] LABS: Glucose,Whole Blood 167 mg/dL (75-99)
[2021-04-03] MEDS ORDERED: INSULIN DETEMIR (LEVEMIR) 100 UNIT/ML SYR SQ SCH (09:00)
[2021-04-03] MEDS: metroNIDAZOLE-NS PMX 500 MG in SALINE 1 100ML.BAG IVPB SCH ×3 (10:05→23:26)
[2021-04-03] MEDS: DOXYCYCLINE 100 MG in SODIUM CHLORIDE 0.9% 100 ML IVPB SCH ×2 (11:10→20:30)
[2021-04-03 11:21] LABS: Glucose,Whole Blood 186 mg/dL (75-99)
--- NOTE | 2021-04-03 11:58 | P.PN ---
Subjective Progress Note Date: 04/03/21 Principal diagnosis: Pelvic pain/hydrosalpinx Melanie is seen and evaluated this morning. She continues to have low-grade fever between 99-100. White blood cell count is noted to have decreased slightly to 14. She otherwise is in very good spirits and relates that her pain is i mproving. Pain is rated 2 or 3 out of 10. We discussed options for care. I did explain that she would need to be afebrile for at least 24 hours before we would even consider discharged home. But we did discuss if there is continued improvement the potentially she could be discharged home with outpatient follow- up for her hydrosalpinx. We also discussed going to the operating room and doing a diagnostic laparoscopy with general surgery as assist to verify the hydrosalpinx and potentially remove it. She is not interested in that procedure at this time. She would prefer not to have surgery if at all possible and is optimistic that the antibiotics will not have to have surgery. I did discuss that in circumstances like this sometimes is a little more difficult for the antibiotic to penetrate into the fallopian tubes may take a little more time for the antibiotics to help fix the infection issue. Her blood sugars are being managed by medicine and they appear at least stable for now. She has mild hypertension at this time. Otherwise her vital signs are stable with low-grade temperature. Her heart is regular and her lungs are clear. Abdomen is soft and there is good bowel sounds. She is tolerating a diet at this time. But she is eating very minimal. Assessment hydrosalpinx? Infection from same. Intractable pain that is improving Plan continue IV antibiotics and conservative care for now. Objective - Vital Signs Vital signs: Vital Signs Temp 99.5 F 04/03/21 11:38 Pulse 85 04/03/21 11:38 Resp 20 04/03/21 11:38 BP 144/95 04/03/21 11:38 Pulse Ox 100 04/03/21 11:38 Intake & Output 04/02/21 04/03/21 04/03/21 18:59 06:59 18:59 Intake Total 900 1560 Balance 900 1560 Intake: Intake, IV Titration 1560 Amount Sodium Chloride 0.9% 1, 1560 000 ml @ 130 mls/hr IV . Q7H42M [facility] Rx#:[id number] Oral 900 Other: Voiding Method Toilet Toilet Toilet # Voids 3 1 - Labs CBC & Chem 7: 04/03/21 06:31 04/01/21 16:30 Labs: Abnormal Lab Results - Last 24 Hours (Table) 04/02/21 04/02/21 04/02/21 Range/Units 11:45 17:17 20:17 WBC (3.8-10.6) k/uL Neutrophils # (1.3-7.7) k/uL POC Glucose (mg/dL) 182 H 167 H 225 H (75-99) mg/dL 04/03/21 04/03/21 04/03/21 Range/Units 02:07 06:31 07:25 WBC 14.8 H (3.8-10.6) k/uL Neutrophils # 12.5 H (1.3-7.7) k/uL POC Glucose (mg/dL) 180 H 167 H (75-99) mg/dL 04/03/21 Range/Units 11:20 WBC (3.8-10.6) k/uL Neutrophils # (1.3-7.7) k/uL POC Glucose (mg/dL) 186 H (75-99) mg/dL Microbiology - Last 24 Hours (Table) 04/01/21 16:30 Blood Culture - Preliminary Blood No Growth after 24 hours
--- NOTE | 2021-04-03 13:21 | P.PN ---
Subjective Progress Note Date: 04/03/21 Principal diagnosis: Pelvic abscess Patient feels better today. T-max 100. Her white blood cell count today is 14.8. No significant vaginal discharge. Objective - Vital Signs Vital signs: Vital Signs Temp 99.5 F 04/03/21 11:38 Pulse 85 04/03/21 11:38 Resp 20 04/03/21 11:38 BP 144/95 04/03/21 11:38 Pulse Ox 100 04/03/21 11:38 Intake & Output 04/02/21 04/03/21 04/03/21 18:59 06:59 18:59 Intake Total 900 1560 Balance 900 1560 Intake: Intake, IV Titration 1560 Amount Sodium Chloride 0.9% 1, 1560 000 ml @ 130 mls/hr IV . Q7H42M [facility] Rx#:[id number] Oral 900 Other: Voiding Method Toilet Toilet Toilet # Voids 3 1 - Exam Abdomen: Soft, nondistended, mild lower abdominal tenderness - Labs CBC & Chem 7: 04/03/21 06:31 04/01/21 16:30 Labs: Abnormal Lab Results - Last 24 Hours (Table) 04/02/21 04/02/21 04/03/21 Range/Units 17:17 20:17 02:07 WBC (3.8-10.6) k/uL Neutrophils # (1.3-7.7) k/uL POC Glucose (mg/dL) 167 H 225 H 180 H (75-99) mg/dL 04/03/21 04/03/21 04/03/21 Range/Units 06:31 07:25 11:20 WBC 14.8 H (3.8-10.6) k/uL Neutrophils # 12.5 H (1.3-7.7) k/uL POC Glucose (mg/dL) 167 H 186 H (75-99) mg/dL Microbiology - Last 24 Hours (Table) 04/01/21 16:30 Blood Culture - Preliminary Blood No Growth after 24 hours Assessment and Plan (1) Abdominal pain Narrative/Plan: Patient seems to be slowly improving. Recheck labs tomorrow. Continue regular diet. Continue antibiotics. Will follow. Current Visit: Yes Status: Acute Code(s): R10.9 - UNSPECIFIED ABDOMINAL PAIN SNOMED Code(s): 91451317
[2021-04-03] MEDS: lisinopriL 20 MG TAB PO SCH (15:39)
--- NOTE | 2021-04-03 16:40 | PN ---
PROGRESS NOTE DATE OF SERVICE: 04/01/2021 CHIEF COMPLAINT: Right lower quadrant abdominal pain. HISTORY OF PRESENT ILLNESS: This lady is doing a little bit better. Temperature has been down. She feels much better. PHYSICAL EXAMINATION: Her chest is clear. Cardiac exam is normal. The abdomen is soft and essentially nontender. Bowel sounds are present. Extremities are normal. IMPRESSION: 1. Right lower quadrant abdominal pain, probably due to tubo-ovarian abscess. 2. Diabetes mellitus. PLAN: 1. Continue to follow blood sugars. 2. Monitor blood pressure. MMODL / IJN: [id number] /
[2021-04-03 17:03] LABS: Glucose,Whole Blood 173 mg/dL (75-99)
--- NOTE | 2021-04-03 17:07 | PN ---
PROGRESS NOTE CHIEF COMPLAINT: Tubo-ovarian abscess. HISTORY OF PRESENT ILLNESS: This lady is doing well and she seems comfortable, but she is still running a temperature at night. She is being followed by Surgery and Gynecology. She feels much better and pain has resolved. PHYSICAL EXAMINATION: Chest is clear. Cardiac exam is normal. The abdomen is soft and nontender. IMPRESSION: 1. Right tubo-ovarian abscess. 2. Diabetes. 3. Hypertension. PLAN: Increase her insulin slightly and resume some of her medications in an attempt to hold her blood pressure slightly lower. MMODL / IJN: [id number] /
--- NOTE | 2021-04-03 17:25 | CONS ---
CONSULTATION CHIEF COMPLAINT: Chills, fever and right lower quadrant abdominal pain. HISTORY OF PRESENT ILLNESS: This is the first known admission for this 50-year-old white female. She came to the hospital after a one- or two-day history of right lower abdominal discomfort, malaise, chills and fever. In the emergency room it was suggested that she may have a right salpingitis with or without tubo-ovarian abscess. Acute appendicitis was a possibility, but CT was more compatible with a right fallopian tube issue. She is a diabetic. REVIEW OF SYSTEMS: She had chills and fever but no other issues. She has had no headache, blackouts, change in vision or hearing, cough, hemoptysis, chest pain, shortness of breath, nausea, vomiting, hematemesis, melena, hematochezia, jaundice, dysuria, frequency, urgency, hematuria, incontinence, etc. Past medical history, family history, and personal and social histories are otherwise unremarkable and noncontributory. She is ALLERGIC TO BYDUREON AND GLIPIZIDE (sulfonylureas). She has been on Lantus 54 units once a day, Trulicity 0.75 once a week, benazepril 20 mg once a day, metformin 1 gram 2 times a day, pravastatin 20 mg once a day, Januvia 100 mg once a day and vitamin D. The remainder of her history is unremarkable. She does not smoke and she only drinks occasionally. She has been quite compliant with management of her diabetes. PHYSICAL EXAMINATION: Blood pressure 124/86 with a pulse of 107, respirations 20 and temperature 99.6. In general she appeared to be well developed, well nourished, in no acute distress. Skin color was normal. Skin was warm and dry. Lymph nodes were not enlarged. Head, ears, eyes, nose, mouth and throat were normal. Neck veins were are not distended. Thyroid was not enlarged. Chest was clear. Cardiac exam was normal. The abdomen was slightly distended and tender in the right lower quadrant. There was no definite mass palpable. Extremities were normal. Neurologically she is intact. She is admitted to the hospital with the diagnoses: 1. Right lower quadrant abdominal pain. 2. Right tubo-ovarian abscess. 3. Type 2 insulin-dependent diabetes mellitus. RECOMMENDATIONS: None at this time. I will be happy to follow her blood sugars and blood pressure. Thank you. Respectfully, Tong Slaughter II, M.D. HENNA / TYRONE: [id number] /
[2021-04-03 20:47] LABS: Glucose,Whole Blood 228 mg/dL (75-99)
[2021-04-04 02:18] LABS: Glucose,Whole Blood 113 mg/dL (75-99)
[2021-04-04] MEDS: SODIUM CHLORIDE 0.9% 1,000 ML IV SCH ×5 (02:27→22:53)
[2021-04-04] MEDS: ACETAMINOPHEN TAB 325 MG TAB PO PRN ×2 (04:23→16:01)
[2021-04-04 07:01] LABS: HCT 35.8 % (34.0-46.0); HGB 11.6 gm/dL (11.4-16.0); MCH 30.4 pg (25.0-35.0); MCHC 32.4 g/dL (31.0-37.0); MCV 93.8 fL (80.0-100.0); Mean Platelet Volume 8.7; Platelet Count 222 k/uL (150-450); RBC 3.82 m/uL (3.80-5.40); RDW 12.8 % (11.5-15.5); WBC 12.4 k/uL (3.8-10.6)
[2021-04-04 07:28] LABS: Glucose,Whole Blood 104 mg/dL (75-99)
--- NOTE | 2021-04-04 07:51 | P.PN ---
Subjective Progress Note Date: 04/04/21 Principal diagnosis: Pelvic abscess Patient had low-grade fevers last night T-max 100.7. Still feels the pain is gradually improving. Having some menorrhagia. White blood cell count improved at 12. Objective - Vital Signs Vital signs: Vital Signs Temp 99.9 F H 04/04/21 05:40 Pulse 88 04/04/21 04:18 Resp 18 04/04/21 04:18 BP 128/66 04/04/21 04:18 Pulse Ox 92 L 04/04/21 04:18 Intake & Output 04/03/21 04/04/21 04/04/21 18:59 06:59 18:59 Intake Total 1560 2210 Balance 1560 2210 Intake: Intake, IV Titration 1560 1760 Amount Doxycycline 100 mg In 100 Sodium Chloride 0.9% 100 ml @ 100 mls/hr IVPB Q12HR [facility] Rx#:[id number] Sodium Chloride 0.9% 1, 1560 1560 000 ml @ 130 mls/hr IV . Q7H42M [facility] Rx#:[id number] metroNIDAZOLE-NS PMX 500 100 mg In Saline 1 100ml.bag @ 100 mls/hr IVPB Q8HR [facility] Rx#:[id number] Oral 450 Other: Voiding Method Toilet Toilet # Voids 2 - Exam Abdomen: Soft, nondistended, mild lower abdominal tenderness - Labs CBC & Chem 7: 04/04/21 06:31 04/01/21 16:30 Labs: Abnormal Lab Results - Last 24 Hours (Table) 04/03/21 04/03/21 04/03/21 Range/Units 11:20 17:02 20:34 WBC (3.8-10.6) k/uL POC Glucose (mg/dL) 186 H 173 H 228 H (75-99) mg/dL 04/04/21 04/04/21 04/04/21 Range/Units 02:10 06:31 07:26 WBC 12.4 H (3.8-10.6) k/uL POC Glucose (mg/dL) 113 H 104 H (75-99) mg/dL Microbiology - Last 24 Hours (Table) 04/01/21 16:30 Blood Culture - Preliminary Blood No Growth after 48 hours Assessment and Plan (1) Abdominal pain Narrative/Plan: Patient doing better at this time. Continue IV antibiotics. Monitor fevers. Will follow. Current Visit: Yes Status: Acute Code(s): R10.9 - UNSPECIFIED ABDOMINAL PAIN SNOMED Code(s): 56625418
[2021-04-04] MEDS: INSULIN DETEMIR (LEVEMIR) 100 UNIT/ML SYR SQ SCH (07:54)
[2021-04-04] MEDS: lisinopriL 20 MG TAB PO SCH (07:54)
[2021-04-04] MEDS: metroNIDAZOLE-NS PMX 500 MG in SALINE 1 100ML.BAG IVPB SCH ×3 (07:54→22:52)
--- NOTE | 2021-04-04 09:22 | P.PN ---
Progress Note - Text Progress Note Date: 04/04/21 Melanie is seen and evaluated this morning. Overall she is doing very well. Her pain is essentially gone. She is passing flatus voiding ambulating and voicing really no complaints. That said she continues to have low-grade temps. She did have one temperature of note that is 100.7. If her white count is noted B12 which is improved but still not normal. The plan will be to do IV antibiotic for one more day with expectation if she continues to improve the hopefully we can discharge her home on oral antibiotics tomorrow. This will be done by her primary gas or water meter installer Dr. Winter. We did discuss that if we were to send her home to early in the Endobag's stop working she may end up coming back even worse. With her improvement in pain though, I expect that she will hopefully be able to be discharged and a decision on whether a repeat CAT scan or ultrasound to reassess this area done outpatient can be made. At this time she does not have a surgical abdomen and does not is not in need of any urgent surgical treatment. All the questions were answered for her and we will plan to continue close conservative care of this for now. All the questions are answered for her and she is stable this time.
[2021-04-04] MEDS: DOXYCYCLINE 100 MG in SODIUM CHLORIDE 0.9% 100 ML IVPB SCH ×2 (09:55→20:16)
[2021-04-04 12:33] LABS: Glucose,Whole Blood 118 mg/dL (75-99)
--- NOTE | 2021-04-04 13:50 | PN ---
PROGRESS NOTE CHIEF COMPLAINT: Right tubo-ovarian abscess. HISTORY OF PRESENT ILLNESS: This lady is feeling a little bit better. This is the best day she has had so far. She still has some right lower quadrant pain and tenderness. She has not had any vomiting. Bowel movements are normal and bladder function is normal. She continues to run low- grade temperatures at night. PHYSICAL EXAMINATION: At the present time her temperature is normal. Vital signs are normal. Chest is clear. Cardiac exam is normal. She is still a little bit tender in the right lower quadrant. IMPRESSION: 1. Right tubo-ovarian abscess. 2. Diabetes. PLAN: Continue with IV fluids and IV antibiotics. If this situation does not settle down in the next 2 or 3 days as evidenced by reduction of her fever to normal, she may be a candidate for an ultrasound and potentially drainage of the abscess percutaneously. HENNA / TYRONE: [id number] /
[2021-04-04 17:15] LABS: Glucose,Whole Blood 227 mg/dL (75-99)
[2021-04-04 21:23] LABS: Glucose,Whole Blood 194 mg/dL (75-99)
[2021-04-04 22:02] VITALS: RESP 20
[2021-04-05 01:56] LABS: Glucose,Whole Blood 127 mg/dL (75-99)
[2021-04-05] MEDS: SODIUM CHLORIDE 0.9% 1,000 ML IV SCH (05:04)
[2021-04-05 05:10] VITALS: TEMP 98.1
[2021-04-05 07:23] LABS: Glucose,Whole Blood 115 mg/dL (75-99)
[2021-04-05 07:29] LABS: Basophils % (A) 0 %; Eosinophils # (A) 0.2 k/uL (0-0.7); Eosinophils % (A) 2 %; HCT 36.2 % (34.0-46.0); HGB 11.9 gm/dL (11.4-16.0); Lymphocytes # (A) 1.1 k/uL (1.0-4.8); Lymphocytes % (A) 9 %; MCH 30.8 pg (25.0-35.0); MCHC 32.9 g/dL (31.0-37.0); MCV 93.5 fL (80.0-100.0); Mean Platelet Volume 8.4; Monocytes # (A) 0.6 k/uL (0-1.0); Monocytes % (A) 5 %; Neutrophils % (A) 84 %; Platelet Count 248 k/uL (150-450); RBC 3.87 m/uL (3.80-5.40); RDW 12.2 % (11.5-15.5); WBC 13.1 k/uL (3.8-10.6)
[2021-04-05] MEDS: INSULIN DETEMIR (LEVEMIR) 100 UNIT/ML SYR SQ SCH ×2 (08:47→09:24)
--- NOTE | 2021-04-05 09:14 | P.DS ---
Providers Date of admission: 04/01/21 19:01 Expected date of discharge: 04/05/21 Attending physician: Sharon Winter Consults: 04/01/21 19:02 Consult Physician Stat Consulting Provider: Tong Slaughter Consult Reason/Comments: PID, Sepsis Do you want consulting provider notified?: Already Contacted 04/02/21 10:13 Consult Physician Urgent Consulting Provider: Quentin Herrera Consult Reason/Comments: Abdominal pain-rule out appendicitis or diverticulitis versus TOA Do you want consulting provider notified?: Yes Primary care physician: Tong Slaughter - Discharge Diagnosis(es) (1) Abdominal pain Current Visit: Yes Status: Acute (2) Pelvic inflammatory disease Current Visit: Yes Status: Acute (3) Sepsis Current Visit: Yes Status: Acute Hospital Course: This is a 50-year-old female who presented with fevers, decreased appetite, and right lower quadrant pain. She was noted to have what appeared to be a tubo- ovarian abscess on ultrasound and CAT scan. Appendix appeared to be normal. She was given Rocephin, Flagyl, and doxycycline IV for several days. Her pain has improved. She has been afebrile for 24 hours. She did finally have a bowel movement yesterday. It was formed with some mucus but no blood. She is having some vaginal bleeding but very light compared to her normal period. She does have some mild cramps but no severe pain in her right lower quadrant. She is requesting to go home since she has been unable to sleep in the hospital. Her white count did increase slightly from yesterday from 12-13. Her absolute neut rophils have gone down slightly though. Consultations were obtained from Dr. Herrera with general surgery and Dr. Slaughter for medicine. Their inputs are appreciated. Currently she is afebrile for 24 hours. Abdomen is soft with positive bowel sounds 4 and minimal tenderness in the right lower quadrant. Impression is right tubo-ovarian abscess. Plan is to discharge home on oral Flagyl and doxycycline twice a day for 14 days. Patient is advised to follow up with me in the office in 2 weeks. She is advised to call if she starts having high fevers or increasing abdominal pain. I will plan a outpatient follow-up ultrasound after the 2 weeks is up. Patient Condition at Discharge: Stable Plan - Discharge Summary Discharge Rx Participant: Yes New Discharge Prescriptions: New Doxycycline Hyclate 100 mg PO BID #28 capsule metroNIDAZOLE [Flagyl] 500 mg PO BID #28 tab Continue Ergocalciferol [Vitamin D2 (1250 Mcg = 80857 Iu)] 1,250 mcg PO Q30D Dulaglutide [Trulicity] 0.75 mg SQ TH sitaGLIPtin [Januvia] 100 mg PO DAILY Insulin Glargine,Hum.rec.anlog [Lantus Solostar Pen] 60 unit SQ DAILY Benazepril HCl 20 mg PO DAILY Pravastatin Sodium [Pravachol] 20 mg PO DAILY Discharge Medication List Benazepril HCl 20 mg PO DAILY 04/01/21 [History] Dulaglutide [Trulicity] 0.75 mg SQ TH 04/01/21 [History] Ergocalciferol [Vitamin D2 (1250 Mcg = 85989 Iu)] 1,250 mcg PO Q30D 04/01/21 [History] Insulin Glargine,Hum.rec.anlog [Lantus Solostar Pen] 60 unit SQ DAILY 04/01/21 [History] Pravastatin Sodium [Pravachol] 20 mg PO DAILY 04/01/21 [History] sitaGLIPtin [Januvia] 100 mg PO DAILY 04/01/21 [History] Doxycycline Hyclate 100 mg PO BID #28 capsule 04/05/21 [Rx] metroNIDAZOLE [Flagyl] 500 mg PO BID #28 tab 04/05/21 [Rx] Follow up Appointment(s)/Referral(s): Tong Slaughter MD [Primary Care Provider] - 1-2 days Sharon Winter DO [Doctor of Osteopathic Medicine] - 2 Weeks Activity/Diet/Wound Care/Special Instructions: Activity as tolerated. Diet as tolerated. Discharge Disposition: HOME SELF-CARE
[2021-04-05] MEDS: lisinopriL 20 MG TAB PO SCH (09:20)
[2021-04-05] MEDS: metroNIDAZOLE-NS PMX 500 MG in SALINE 1 100ML.BAG IVPB SCH (09:20)
[2021-04-05 09:23] VITALS: BP 120/56; PULSE 64
[2021-04-05] MEDS: DOXYCYCLINE 100 MG in SODIUM CHLORIDE 0.9% 100 ML IVPB SCH (10:33)
--- NOTE | 2021-04-05 12:46 | P.PN ---
<Kendall,Renee - Last Filed: 04/05/21 12:40> Subjective Progress Note Date: 04/05/21 CHIEF COMPLAINT: Andi pain, pelvic abscess HISTORY OF PRESENT ILLNESS: The patient was seen and examined sitting up in the bedside chair. States abdominal pain has improved. She's been afebrile. States she had a bowel movement this morning. Denies any nausea or vomiting. She has been discharged per PERSONAL PROPERTY APPRAISER. PHYSICAL EXAM: VITAL SIGNS: Reviewed. GENERAL: Well-developed in no acute distress. HEENT: No sclera icterus. Extraocular movements grossly intact. Moist buccal mucosa. Head is atraumatic, normocephalic. ABDOMEN: Soft. Nondistended. Nontender. NEUROLOGIC: Alert and oriented. Cranial nerves II through XII grossly intact. ASSESSMENT: 1. Abdominal pain PLAN: 1. Continue with recommendations from gynecology 2. Patient is cleared for discharge from general surgery The impression and plan of care has been dictated as directed. Dr. Herrera I performed a history and examination of this patient, discussed the same with the dictator. I agree with the dictator's note ,documented as a scribe. Any additional findings or plans will be noted. Objective - Vital Signs Vital signs: Vital Signs Temp 98.1 F 04/05/21 04:35 Pulse 64 04/05/21 09:22 Resp 20 04/05/21 04:35 BP 120/56 04/05/21 09:22 Pulse Ox 95 04/05/21 04:35 Intake & Output 04/04/21 04/05/21 04/05/21 18:59 06:59 18:59 Intake Total 1760 Balance 1760 Intake: Intake, IV Titration 1760 Amount Doxycycline 100 mg In 100 Sodium Chloride 0.9% 100 ml @ 100 mls/hr IVPB Q12HR [facility] Rx#:[id number] Sodium Chloride 0.9% 1, 1560 000 ml @ 130 mls/hr IV . Q7H42M [facility] Rx#:[id number] metroNIDAZOLE-NS PMX 500 100 mg In Saline 1 100ml.bag @ 100 mls/hr IVPB Q8HR [facility] Rx#:[id number] Other: Voiding Method Toilet Toilet # Voids 2 1 # Bowel Movements 1 - Labs CBC & Chem 7: 04/05/21 06:53 04/01/21 16:30 Labs: Abnormal Lab Results - Last 24 Hours (Table) 04/04/21 04/04/21 04/05/21 Range/Units 17:07 20:58 01:51 WBC (3.8-10.6) k/uL Neutrophils # (1.3-7.7) k/uL POC Glucose (mg/dL) 227 H 194 H 127 H (75-99) mg/dL 04/05/21 04/05/21 Range/Units 06:53 07:21 WBC 13.1 H (3.8-10.6) k/uL Neutrophils # 11.0 H (1.3-7.7) k/uL POC Glucose (mg/dL) 115 H (75-99) mg/dL Microbiology - Last 24 Hours (Table) 04/01/21 18:36 Genital Culture - Final Vaginal 04/01/21 16:30 Blood Culture - Preliminary Blood No Growth after 72 hours <Quentin Herrera - Last Filed: 04/05/21 13:23> Subjective I have personally seen and examined the patient, reviewed the VICE PRESIDENT OF [employer]ALENT [employer]NAG[employer] /PAs history, exam and MDM and agree with the assessment and plan as written. Based on total visit time, I have performed more than 50% of the visit. As above. May discharge. Repeat CAT scan per PERSONAL PROPERTY APPRAISER. Objective - Vital Signs Vital signs: Vital Signs Temp 98.1 F 04/05/21 04:35 Pulse 64 04/05/21 09:22 Resp 20 04/05/21 04:35 BP 120/56 04/05/21 09:22 Pulse Ox 95 04/05/21 04:35 Intake & Output 04/04/21 04/05/21 04/05/21 18:59 06:59 18:59 Intake Total 1760 Balance 1760 Intake: Intake, IV Titration 1760 Amount Doxycycline 100 mg In 100 Sodium Chloride 0.9% 100 ml @ 100 mls/hr IVPB Q12HR [facility] Rx#:[id number] Sodium Chloride 0.9% 1, 1560 000 ml @ 130 mls/hr IV . Q7H42M [facility] Rx#:[id number] metroNIDAZOLE-NS PMX 500 100 mg In Saline 1 100ml.bag @ 100 mls/hr IVPB Q8HR [facility] Rx#:[id number] Other: Voiding Method Toilet Toilet # Voids 2 1 # Bowel Movements 1 - Labs CBC & Chem 7: 04/05/21 06:53 04/01/21 16:30 Labs: Abnormal Lab Results - Last 24 Hours (Table) 04/04/21 04/04/21 04/05/21 Range/Units 17:07 20:58 01:51 WBC (3.8-10.6) k/uL Neutrophils # (1.3-7.7) k/uL POC Glucose (mg/dL) 227 H 194 H 127 H (75-99) mg/dL 04/05/21 04/05/21 Range/Units 06:53 07:21 WBC 13.1 H (3.8-10.6) k/uL Neutrophils # 11.0 H (1.3-7.7) k/uL POC Glucose (mg/dL) 115 H (75-99) mg/dL Microbiology - Last 24 Hours (Table) 04/01/21 18:36 Genital Culture - Final Vaginal 04/01/21 16:30 Blood Culture - Preliminary Blood No Growth after 72 hours Assessment and Plan (1) Abdominal pain Status: Acute Code(s): R10.9 - UNSPECIFIED ABDOMINAL PAIN SNOMED Code(s): 28576823
--- NOTE | 2021-04-05 13:39 | PN ---
PROGRESS NOTE CHIEF COMPLAINT: Right lower quadrant pain. HISTORY OF PRESENT ILLNESS: This lady is doing well. She had a very minimally elevated temperature last night. She is feeling better each day. She relates that gynecology is planning on letting her go home. REVIEW OF SYSTEMS: She has had no chills, fever, nausea, diarrhea, etc. PHYSICAL EXAMINATION: Her vital signs are normal. Temperature is normal. Chest is clear. Cardiac exam is normal. Abdomen is soft and nontender. IMPRESSION: 1. Right tubo-ovarian abscess. 2. Diabetes. PLAN: Probably home today. She will require short-term followup to ensure that this infection stays under control. MMODL / IJN: [id number] /
== END 2021-04-05 12:25 | disposition home or self-care (01) | DRG 872 ==
LOC: EC 15:46 → 5NMEDONC 19:01
PROVIDERS: ADMIT Obstetrics & Gynecology; ATTEND Obstetrics & Gynecology
DX: A41.9 Sepsis, unspecified organism (principal); N70.93 Salpingitis and oophoritis, unspecified; Z20.822 Contact with and (suspected) exposure to COVID-19; I10 Essential (primary) hypertension; E11.40 Type 2 diabetes mellitus with diabetic neuropathy, unspecified; N83.292 Other ovarian cyst, left side; N73.9 Female pelvic inflammatory disease, unspecified; N89.8 Other specified noninflammatory disorders of vagina; E78.5 Hyperlipidemia, unspecified; K59.00 Constipation, unspecified; N92.0 Excessive and frequent menstruation with regular cycle; Z79.84 Long term (current) use of oral hypoglycemic drugs; Z79.899 Other long term (current) drug therapy; Z88.5 Allergy status to narcotic agent
CPT/HCPCS: 36415; 74177; 76830; 80053; 81001; 81025; 83605; 83690; 85025; 85027; 87040; 87070; 87491; 87591; 87635; 93975; 96361; 96374; 96375; 99291

== ENCOUNTER → 2021-05-10 | Outpatient (CLI) | payer OTHER ==
--- NOTE | 2021-05-10 13:44 | US ---
EXAMINATION TYPE: US pelvic complete DATE OF EXAM: 05/10/2021 COMPARISON: US 2021 CLINICAL HISTORY: N70.93 TUBO OVARIAN ABCESS. Follow up tubo-ovarian abscess, 3, para 2, misc arriage 1 TECHNIQUE: . Transabdominal sonographic images of the pelvis were acquired. Transvaginal sonographi c images were medically necessary to better assess the following anatomy: ovaries Date of LMP: 2021 EXAM MEASUREMENTS: Uterus: 6.8 x 4.2 x 4.5 cm Endometrial Stripe: 0.3 cm Right Ovary: 2.3 x 1.5 x 1.5 cm Left Ovary: 2.1 x 1.3 x 1.4 cm 1. Uterus: retroverted, heterogeneous 2. Endometrium: appears wnl 3. Right Ovary: wnl 4. Left Ovary: wnl 5. Bilateral Adnexa: free fluid with debris and septations in bilateral adnexa, tubular vascular str ucture within right adnexa measuring 5.9cm 6. Posterior cul-de-sac: free fluid IMPRESSION: Persistent tubular hyper vascular structure right adnexa may reflect hydrosalpinx with residual pyosa lpinx difficult to exclude.
== END | disposition home or self-care (01) ==
LOC: RADUSWWP 12:46
PROVIDERS: ATTEND Obstetrics & Gynecology
DX: N83.8 Other noninflammatory disorders of ovary, fallopian tube and broad ligament (principal)
CPT/HCPCS: 76830; 76856

== ENCOUNTER 2021-12-03 22:07 | Emergency (ER) | payer OTHER ==
[2021-12-03 22:17] VITALS: TEMP 98.2
[2021-12-03] MEDS ORDERED: ONDANSETRON 4 MG/2 ML VIAL IVP STA (22:37)
[2021-12-03] MEDS ORDERED: KETOROLAC 15 MG/ML 1 ML VIAL IVP STA (22:37)
--- NOTE | 2021-12-03 23:10 | ED ---
Back Pain HPI - General Chief Complaint: Back Pain/Injury Stated Complaint: Kidney Pain Time Seen by Provider: 12/03/21 22:19 Source: patient, RN notes reviewed Limitations: no limitations - History of Present Illness Initial Comments: This is a 51-year-old female who presents to the emergency department for left flank pain and left lower abdominal pain. States that for the last month, she has been treated for kidney infections. She's been treated with 2 antibiotics, but states that she continues to have bloating and increased urinary pressure. Believes that the antibiotics were Macrobid and Bactrim. Also reports burning with urination and intermittent hematuria. She feels nauseous but has not had any vomiting. She feels like her symptoms got better with antibiotics but never completely resolved. Denies any history of kidney stones. States that she had a mildly elevated temperature yesterday, and has become septic in the past from kidney infections. Denies any fevers, chills, sore throat, cough, dyspnea, chest pain, palpitations, diarrhea, or headaches. MD Complaint: back pain - Related Data Home Medications Medication Instructions Recorded Confirmed Benazepril HCl 20 mg PO DAILY 04/01/21 04/01/21 Dulaglutide [Trulicity] 0.75 mg SQ TH 04/01/21 04/01/21 Ergocalciferol [Vitamin D2 (1250 1,250 mcg PO Q30D 04/01/21 04/01/21 Mcg = 77264 Iu)] Insulin Glargine,Hum.rec.anlog 60 unit SQ DAILY 04/01/21 04/01/21 [Lantus Solostar Pen] Pravastatin Sodium [Pravachol] 20 mg PO DAILY 04/01/21 04/01/21 sitaGLIPtin [Januvia] 100 mg PO DAILY 04/01/21 04/01/21 Previous Rx's Medication Instructions Recorded Doxycycline Hyclate 100 mg PO BID #28 capsule 04/05/21 metroNIDAZOLE [Flagyl] 500 mg PO BID #28 tab 04/05/21 Cefpodoxime Proxetil [Vantin] 200 mg PO Q12HR 14 Days #28 tab 12/04/21 Ketorolac [Toradol] 10 mg PO Q6HR PRN #12 tab 12/04/21 Ondansetron Odt [Zofran Odt] 4 mg PO Q8HR PRN #15 tab 12/04/21 traMADol HCL 50 mg PO Q6H 3 Days #12 tab 12/04/21 Allergies Allergy/AdvReac Type Severity Reaction Status Date / Time codeine Allergy Nausea & Verified 12/03/21 22:17 Vomiting Review of Systems ROS Statement: Those systems with pertinent positive or pertinent negative responses have been documented in the HPI. ROS Other: All systems not noted in ROS Statement are negative. Past Medical History Past Medical History: Diabetes Mellitus Additional Past Medical History / Comment(s): Type II Diabetes History of Any Multi-Drug Resistant Organisms: None Reported Past Surgical History: Breast Surgery Additional Past Surgical History / Comment(s): lumpectomy Past Anesthesia/Blood Transfusion Reactions: No Reported Reaction Past Psychological History: No Psychological Hx Reported Smoking Status: Never smoker Past Alcohol Use History: Occasional Past Drug Use History: None Reported - Past Family History Mother Family Medical History: No Reported History General Exam Limitations: no limitations General appearance: alert, in no apparent distress Head exam: Present: atraumatic, normocephalic, normal inspection Respiratory exam: Present: normal lung sounds bilaterally. Absent: respiratory distress, wheezes, rales, rhonchi, stridor Cardiovascular Exam: Present: regular rate, normal rhythm, normal heart sounds. Absent: systolic murmur, diastolic murmur, rubs, gallop, clicks GI/Abdominal exam: Present: soft, tenderness (LLQ), normal bowel sounds. Absent: distended, guarding, rebound, rigid Back exam: Present: CVA tenderness (L) Neurological exam: Present: alert, oriented X3, CN II-XII intact Psychiatric exam: Present: normal affect, normal mood Skin exam: Present: warm, dry, intact, normal color. Absent: rash Course Vital Signs 12/03/21 12/04/21 22:15 01:10 Temperature 98.2 F Pulse Rate 99 74 Respiratory 18 15 Rate Blood Pressure 144/84 133/76 O2 Sat by Pulse 97 99 Oximetry Medical Decision Making - Medical Decision Making This is a 51-year-old female who presents to the emergency department for left flank pain. Lab work reveals leukocytosis. Computed tomography scan of the abdomen and pelvis reveals mild left-sided periureteral edema which may be related to a recently passed stone, however ureteritis and a pyelonephritis cannot be excluded. Findings discussed with the patient, advised that given the level of infection and history of serious infections in the past, admission for IV antibiotics would be the better option. Patient declines and requests discharge home instead. She was given a dose of ceftriaxone in the emergency department. Rx for Vantin provided along with Toradol, tramadol, and Zofran. Strict return parameters discussed, and she will also need to follow up with Dr. Winter or her primary care provider to have her urine and lab work rechecked. Instructed her to avoid taking ibuprofen or other anti-inflammatories with the Toradol and to take the tramadol sparingly when her pain is the most severe. Return precautions reviewed in depth, the patient is instructed to return to the emergency department with any new, worsening, or concerning symptoms. Patient verbalized understanding. This case was discussed in detail with the attending ED physician. Presentation, findings, and treatment plan discussed in detail as well. - Lab Data Result diagrams: 12/03/21 23:43 12/03/21 23:43 Lab Results 12/03/21 12/03/21 12/03/21 Range/Units 23:43 23:43 23:43 WBC 16.4 H (3.8-10.6) k/uL RBC 4.55 (3.80-5.40) m/uL Hgb 13.7 (11.4-16.0) gm/dL Hct 41.5 (34.0-46.0) % MCV 91.2 (80.0-100.0) fL MCH 30.2 (25.0-35.0) pg MCHC 33.1 (31.0-37.0) g/dL RDW 12.1 (11.5-15.5) % Plt Count 278 (150-450) k/uL MPV 8.6 Neutrophils % 82 % Lymphocytes % 10 % Monocytes % 4 % Eosinophils % 2 % Basophils % 0 % Neutrophils # 13.4 H (1.3-7.7) k/uL Lymphocytes # 1.6 (1.0-4.8) k/uL Monocytes # 0.7 (0-1.0) k/uL Eosinophils # 0.4 (0-0.7) k/uL Basophils # 0.1 (0-0.2) k/uL Sodium 135 L (137-145) mmol/L Potassium 4.3 (3.5-5.1) mmol/L Chloride 96 L (98-107) mmol/L Carbon Dioxide 23 (22-30) mmol/L Anion Gap 16 mmol/L BUN 23 H (7-17) mg/dL Creatinine 0.91 (0.52-1.04) mg/dL Est GFR (CKD-EPI)AfAm 84 (>60 ml/min/1.73 sqM) Est GFR (CKD-EPI)NonAf 73 (>60 ml/min/1.73 sqM) Glucose 292 H (74-99) mg/dL Calcium 9.9 (8.4-10.2) mg/dL Total Bilirubin 0.6 (0.2-1.3) mg/dL AST 22 (14-36) U/L ALT 26 (4-34) U/L Alkaline Phosphatase 81 (38-126) U/L Total Protein 8.3 H (6.3-8.2) g/dL Albumin 5.0 (3.5-5.0) g/dL Amylase 51 (30-110) U/L Lipase 193 (23-300) U/L Urine Color Yellow Urine Appearance Cloudy H (Clear) Urine pH 6.5 (5.0-8.0) Ur Specific [place] 1.021 (1.001-1.035) Urine Protein 2+ H (Negative) Urine Glucose (UA) 4+ H (Negative) Urine Ketones Negative (Negative) Urine Blood Moderate H (Negative) Urine Nitrite Negative (Negative) Urine Bilirubin Negative (Negative) Urine Urobilinogen <2.0 (<2.0) mg/dL Ur Leukocyte Esterase Large H (Negative) Urine RBC 111 H (0-5) /hpf Urine WBC >182 H (0-5) /hpf Urine WBC Clumps Few H (None) /hpf Ur Squamous Epith Cells 1 (0-4) /hpf Urine Bacteria Rare H (None) /hpf Urine Mucus Rare H (None) /hpf - Radiology Data Radiology results: report reviewed, image reviewed Disposition Clinical Impression: Pyelonephritis Disposition: HOME SELF-CARE Instructions (If sedation given, give patient instructions): Urinary Tract Infection in Women (ED), Kidney Infection (ED) Additional Instructions: Return to the emergency department with any new, worsening, or concerning symptoms. Take the antibiotic as prescribed for 14 days. The Toradol can be taken up to every 6 hours as needed for pain. Do not take ibuprofen if you take this. Take the [place] sparingly when your pain is the most severe. The Zofran can be taken up to every 8 hours as needed for nausea and vomiting. Follow up with your primary care provider and Dr. Winter. Prescriptions: Ketorolac [Toradol] 10 mg PO Q6HR PRN #12 tab PRN Reason: Pain traMADol HCL 50 mg PO Q6H 3 Days #12 tab Cefpodoxime Proxetil [Vantin] 200 mg PO Q12HR 14 Days #28 tab Ondansetron Odt [Zofran Odt] 4 mg PO Q8HR PRN #15 tab PRN Reason: Nausea And Vomiting Is patient prescribed a controlled substance at d/c from ED?: Yes When asked, does pt state using other controlled substances?: No If prescribed controlled substance>3 days was MAPS reviewed?: Prescribed <3 Days Referrals: Tong Slaughter MD [Primary Care Provider] - 1-2 days
[2021-12-04 00:01] LABS: Basophils # (A) 0.1 k/uL (0-0.2); Basophils % (A) 0 %; Eosinophils # (A) 0.4 k/uL (0-0.7); Eosinophils % (A) 2 %; HCT 41.5 % (34.0-46.0); HGB 13.7 gm/dL (11.4-16.0); Lymphocytes # (A) 1.6 k/uL (1.0-4.8); Lymphocytes % (A) 10 %; MCH 30.2 pg (25.0-35.0); MCHC 33.1 g/dL (31.0-37.0); MCV 91.2 fL (80.0-100.0); Mean Platelet Volume 8.6; Monocytes # (A) 0.7 k/uL (0-1.0); Monocytes % (A) 4 %; Neutrophils # (A) 13.4 k/uL (1.3-7.7); Neutrophils % (A) 82 %; Platelet Count 278 k/uL (150-450); RBC 4.55 m/uL (3.80-5.40); RDW 12.1 % (11.5-15.5); WBC 16.4 k/uL (3.8-10.6)
[2021-12-04 00:09] LABS: Appearance,Urine Cloudy (Clear); Bacteria,Urine Rare /hpf; Bilirubin,Urine Negative (Negative); Blood,Urine Moderate (Negative); Color,Urine Yellow; Glucose,Urine (UA) 4+ (Negative); Ketones,Urine Negative (Negative); Leukocyte Esterase,Urine Large (Negative); Mucus,Urine Rare /hpf; Nitrite,Urine Negative (Negative); PH, Urine 6.5 (5.0-8.0); Protein,Urine 2+ (Negative); RBC,Urine 111 /hpf (0-5); Specific Gravity,Urine 1.021 (1.001-1.035); Squamous Epithelial Cell,Urine 1 /hpf (0-4); Urobilinogen,Urine <2.0 mg/dL (<2.0); WBC,Urine >182 /hpf (0-5)
[2021-12-04 00:15] LABS: Calcium 9.9 mg/dL (8.4-10.2); Potassium 4.3 mmol/L (3.5-5.1); Total Bilirubin 0.6 mg/dL (0.2-1.3); Total Protein 8.3 g/dL (6.3-8.2)
[2021-12-04] MEDS ORDERED: cefTRIAXone IN SWFI 1,000 MG/10 ML SYRINGE IVP STA (00:16)
--- NOTE | 2021-12-04 00:17 | CT ---
EXAMINATION TYPE: CT abdomen pelvis wo con DATE OF EXAM: 12/03/2021 COMPARISON: 04/01/2021 HISTORY: back pain & lower abd pain, bloating CT DLP: 623.8 mGycm Automated exposure control for dose reduction was used. Images obtained from the diaphragm to the floor the pelvis with no contrast. The lung bases are clear. No pleural effusion. Heart size is normal. No pericardial effusion. Liver spleen and stomach pancreas and gallbladder appear intact. The stomach has normal size and cont our. The bile duct are not dilated. There is no adrenal mass. Kidneys show normal size and contour. There is some mild left-sided periureteral edema. No definite ureteral calculus. Bladder distends smoothly. No inguinal hernia. There is some fullness of the left ureter. The appendix is posterior and appears normal. Right ureter appears fairly normal. No renal calculus. No retroperitoneal adenopathy. The lumbar vertebrae have normal alignment. No compression fracture. U terus is anteverted. No pelvic mass. The bony pelvis is intact. The hip joints are intact. There is no mesenteric edema. No ascites or free air. No sign of a bowel obstruction. IMPRESSION: Mild left-sided periureteral edema. No significant hydronephrosis. This appears new compared to old e xam. This could relate to recently passed stone or nonopaque stone. Ureteritis and pyelonephritis als o possible. Normal appendix. Ureteral abnormality is new compared to old exam.
[2021-12-04] MEDS ORDERED: ONDANSETRON 4 MG ODT STARTER PACK 2 TAB BTL PO STA (00:47)
[2021-12-04] MEDS ORDERED: traMADol 50 MG STARTER PACK 3 TAB BTL PO STA (00:50)
[2021-12-04 01:10] VITALS: BP 133/76; PULSE 74; RESP 15
== END 2021-12-04 01:24 | disposition home or self-care (01) ==
LOC: EC 22:07
DX: N12 Tubulo-interstitial nephritis, not specified as acute or chronic (principal); Z88.5 Allergy status to narcotic agent; E11.9 Type 2 diabetes mellitus without complications
CPT/HCPCS: 36415; 80053; 82150; 83690; 85025; 81001; 87086; 74176; 99284; 96374; 96375; J2405; J0696; J1885; S0119; 87077; 87186

== ENCOUNTER → 2021-12-27 | Outpatient (CLI) | payer OTHER ==
--- NOTE | 2021-12-27 19:56 | BD ---
EXAMINATION TYPE: Axial Bone Density DATE OF EXAM: 12/27/2021 COMPARISON: NONE CLINICAL HISTORY: 51 years year old Female. ICD-10 CODE: N95.1 POST MENOPAUSAL SYMPTOMS Height: 66 Weight: 178.3 FRAX RISK QUESTIONS: Alcohol (3 or more units per day): NO Family History (Parent hip fracture): NO Glucocorticoids (More than 3mos): NO History of Fracture in Adulthood: FOOT Secondary Osteoporosis: 1. Type 1 Diabetes: NO 2. Hyperthyroidism: NO 3. Menopause before 45: NO 4. Malnutrition: NO 5. Chronic liver disease: NO Rheumatoid Arthritis: NO Current Tobacco Use: NO RISK FACTORS HISTORY OF: Hip Fracture (Right/Left): NO Spine Fracture: NO History of Wrist Fracture: NO Surgery to Spine/Hip(right/left)/Wrist (right/left): NO Family History of Osteoporosis: NO Active: YES Diet low in dairy products/other sources of calcium YES Postmenopausal woman: NO If Premenopausal, do you have irregular periods: YES Take estrogen and/or progesterone medications: NO Lost more than 2 inches in height since high school: NO Frequent falls: NO Poor Health: NO Hyperparathyroidism: NO Adrenal Insufficiency: NO MEDICATIONS: Prednisone or other steroids: NO Thyroid Medications: NO Osteoporosis Medications: NO Additional Medications: METFORMIN, INSULIN, BP MEDS, VIT D, EXAM MEASUREMENTS: Bone mineral densitometry was performed using the [employer] System. Bone mineral density as measured about the Lumbar spine is: ----- L1-L4(G/cm2): 1.334 T Score Values are as follows: ----- L1: -0.2 ----- L2: 1.6 ----- L3: 1.6 ----- L4: 1.6 ----- L1-L4: 1.3 BASELINE STUDY Bone mineral density about the R hip (g/cm2): 0.890 Bone mineral density about the L hip (g/cm2): 0.868 T Score values are as follows: -----R Neck: -1.1 -----L Neck: -1.2 -----R Total: 0.1 -----L Total: -0.3 BASELINE STUDY FRAX%s: The graph provided illustrates a 4.9% chance for a major osteoporotic fx and a 0.3% chance fo r the hips probability for fx in 10 years time. IMPRESSION: Osteopenia (T Score between -2.5 and -1). There is slightly increased risk of fracture and the patient may be considered for treatment. Re-Screen 2-5 years. NOTE: T-SCORE=SD OF THE YOUNG ADULT MEAN.
--- NOTE | 2021-12-28 09:33 | MM ---
Reason for Exam: Screening (asymptomatic). Last mammogram was performed 1 year(s) and 9 month(s) ago. Patient History: Menarche at age 11. First Full-Term at age 22. Hormonal Contraceptives, starting at age 27 for 16 years. Core Biopsy on the Right side. 07/04/2002, Benign Ultrasound-Guided Core Biopsy on the right side. Maternal grandmother had breast cancer, age 52. Last menstrual period: 11/18/2021 Risk Values: Nataliya 5 year model risk: 1.4%. NCI Lifetime model risk: 11.5%. Prior Study Comparison: 03/21/2016 Bilateral Screening Mammogram, [facility]. 12/12/2017 Bilateral Screening Mammogram, [facility]. 03/02/2020 Bilateral Screening Mammogram, [facility]. Tissue Density: There are scattered fibroglandular densities. Findings: Analyzed By CAD. There is no suspicious new group of microcalcifications or new suspicious mass in either breast. Overall Assessment: Negative, BI-RAD 1 Management: Screening Mammogram of both breasts in 1 year. A clinical breast exam by your physician is recommended on an annual basis and results should be correlated with mammographic findings. Electronically signed and approved by: Berry Glaser M.D.
== END | disposition home or self-care (01) ==
LOC: RADBDWWP 13:20
PROVIDERS: ATTEND Obstetrics & Gynecology
DX: Z12.31 Encounter for screening mammogram for malignant neoplasm of breast (principal); M85.89 Other specified disorders of bone density and structure, multiple sites; Z78.0 Asymptomatic menopausal state; Z80.3 Family history of malignant neoplasm of breast
CPT/HCPCS: 77067; 77080

== ENCOUNTER → 2023-08-07 | Outpatient (CLI) | payer OTHER ==
--- NOTE | 2023-08-09 13:02 | MM ---
Reason for Exam: Screening (asymptomatic). Last mammogram was performed 1 year(s) and 8 month(s) ago. Patient History: Menarche at age 11. First Full-Term at age 22. Hormonal Contraceptives, starting at age 27 for 16 years. Core Biopsy on the Right side. 07/04/2002, Benign Ultrasound-Guided Core Biopsy on the right side. Maternal grandmother had breast cancer, age 52. Risk Values: Nataliya 5 year model risk: 1.5%. NCI Lifetime model risk: 11.3%. Prior Study Comparison: 12/12/2017 Bilateral Screening Mammogram, [facility]. 03/02/2020 Bilateral Screening Mammogram, [facility]. 12/27/2021 Bilateral MG screening mammo w CAD, [facility]. Tissue Density: There are scattered areas of fibroglandular density. Findings: Analyzed By CAD. There is no suspicious group of microcalcifications or new suspicious mass in either breast. Overall Assessment: Negative, BI-RAD 1 Management: Screening Mammogram of both breasts in 1 year. . Patient should continue monthly self-breast exams. A clinical breast exam by your physician is recommended on an annual basis. This exam should not preclude additional follow-up of suspicious palpable abnormalities. Note on Nataliya scores and lifetime risk: 1. A Nataliya score greater than 3% is considered moderate risk. If this is the case, consider specialist referral to assess eligibility for a risk reducing agent. 2. If overall lifetime risk for the development of breast cancer is 20% or higher, the patient may qualify for future screening with alternating mammogram and breast MRI. Electronically signed and approved by: Wiliam Jensen M.D. Radiologis
== END | disposition home or self-care (01) ==
LOC: RADMAMWWP 16:19
PROVIDERS: ATTEND Family Medicine
DX: Z12.31 Encounter for screening mammogram for malignant neoplasm of breast (principal); Z80.3 Family history of malignant neoplasm of breast
CPT/HCPCS: 77063; 77067

== ENCOUNTER → 2024-09-02 | Outpatient (CLI) | payer OTHER ==
--- NOTE | 2024-09-02 10:23 | MM ---
Reason for Exam: Screening (asymptomatic). Last mammogram was performed 1 year(s) and 1 month(s) ago. Patient History: Menarche at age 11. First Full-Term at age 22. Hormonal Contraceptives, starting at age 27 for 16 years. Core Biopsy on the Right side. 07/04/2002, Benign Ultrasound-Guided Core Biopsy on the right side. Maternal grandmother had breast cancer, age 52. Last menstrual period: Risk Values: Nataliya 5 year model risk: 1.5%. NCI Lifetime model risk: 11.1%. Prior Study Comparison: 03/02/2020 Bilateral Screening Mammogram, [facility]. 12/27/2021 Bilateral MG screening mammo w CAD, [facility]. 08/07/2023 Bilateral MG 3D screening mammo w/cad, [facility]. Tissue Density: There are scattered areas of fibroglandular density. Findings: Analyzed By CAD. There are a few scattered and loosely grouped tiny benign-appearing round and linear calcifications bilaterally redemonstrated. There is no suspicious group of microcalcifications or new suspicious mass in either breast. Overall Assessment: Benign, BI-RAD 2 Management: Screening Mammogram of both breasts in 1 year. . Patient should continue monthly self-breast exams. A clinical breast exam by your physician is recommended on an annual basis. This exam should not preclude additional follow-up of suspicious palpable abnormalities. Note on Nataliya scores and lifetime risk: 1. A Nataliya score greater than 3% is considered moderate risk. If this is the case, consider specialist referral to assess eligibility for a risk reducing agent. 2. If overall lifetime risk for the development of breast cancer is 20% or higher, the patient may qualify for future screening with alternating mammogram and breast MRI. [facility], , 09/02/2024 10:19 AM. Electronically signed and approved by: Berry Glaser M.D.
== END | disposition home or self-care (01) ==
LOC: RADMAMWWP 09:32
PROVIDERS: ATTEND Family Medicine
DX: Z12.31 Encounter for screening mammogram for malignant neoplasm of breast (principal); R92.323 Mammographic fibroglandular density, bilateral breasts; Z92.0 Personal history of contraception; Z80.3 Family history of malignant neoplasm of breast
CPT/HCPCS: 77063; 77067